=== PATIENT | male | born 1985 | race African-American/Black ===

== ENCOUNTER 2024-12-25 13:12 | Inpatient (IN) | payer MEDICAID, SELFPAY ==
[2024-12-25] VITALS (63 sets, daily range): BP systolic 128–190; BP diastolic 78–112; PULSE 57–105; RESP 10–97; TEMP 36.8–37.1; O2SAT 90–100; BMI 27.8
--- NOTE | 2024-12-25 13:20 | XR_ITS ---
Examination: AP chest single view TECHNIQUE: AP portable upright chest single view Date and time: December 25, 2024, 1350 hours, comparison March 31, 2023 INDICATIONS: Stroke alert today FINDINGS: Normal heart size No aspiration pneumonia. The osseous structures are intact IMPRESSION: No aspiration pneumonia
--- NOTE | 2024-12-25 13:20 | XR_ITS ---
Examination: CTA carotids with intravenous contrast CTA brain, head with intravenous contrast. 2-D sagittal, coronal reconstructions. 3-D reconstructions. Exam date and time: December 25, 2024, 1330 hours INDICATIONS: Stroke alert, onset right-sided body weakness slurred speech dizziness beginning one hour ago CTDI: vol (mGy) 25.2 DLP: (mGycm) 509 Technique: Multiple CTA axial brain, head carotid images post intravenous contrast injection 75 cc, [id number]. 2-D sagittal, coronal reconstructions. 3-D reconstructions, 3-D post processing including vascular maximum intensity projection images. Low dose protocols were performed. One or more of the following dose reduction techniques were used; automated exposure control, adjustment of the mA and/or KV according to patient size, use of iterative reconstruction technique. Findings: No common carotid carotid bifurcation or internal carotid artery stenoses Dominant right vertebral artery in the neck with no critical stenoses No cerebral large vessel arterial occlusions or thrombus IMPRESSION: No significant neck arterial stenoses No cerebral large vessel arterial occlusions or thrombus
--- NOTE | 2024-12-25 13:20 | EKG_ITS ---
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
--- NOTE | 2024-12-25 13:20 | XR_ITS ---
Examination: CT brain head without contrast. 2-D sagittal coronal reconstructions Date and time of exam:December 25, 2024, 1326 hours INDICATIONS: Stroke alert, onset focal neurologic deficit Technique: Multiple CT axial sections of the brain have been obtained, 5 mm slice thickness. Contrast has not been administered. 2-D sagittal, coronal reconstructions have been obtained Low dose protocols were performed. One or more of the following dose reduction techniques were used; automated exposure control, adjustment of the mA and/or KV according to patient size, use of iterative reconstruction technique. Findings: No significant ventricular enlargement. Intra-axial or extra-axial hemorrhage density is not seen. No mass effect or midline shift Basal cisterns are not remarkable. Fourth ventricle is midline. Cranial vault intact. Impression: Negative for acute hemorrhage, mass effect or midline shift
--- NOTE | 2024-12-25 13:21 | PD.EDWEAK ---
ED Weakness RME/HPI General Chief complaint: Weakness Stated complaint: possible stroke, slurring words, dizziness Time Seen by Provider: 12/25/24 13:19 Arrival date/time: 12/25/24 13:12 RME / HPI RME / HPI Narrative: 39-year-old male patient with no significant past medical history except for chronic alcoholism, came in for evaluation regarding sudden onset of slurring of speech, and facial asymmetry, severity moderate. Patient denies any upper or lower extremity weakness patient is ambulatory. Last well-known time was 1 hour ago. Patient admits of drinking 2 beers today. No headache no dizziness. Patient is not taking any blood thinner. Related Data Previous Rx's ?Medication ?Instructions ?Recorded Hydrocodone/Acetaminophen * (NORCO 1 - 2 tab PO Q4H PRN PAIN #20 tabs 07/11/16 5/325 *) ibuprofen 600 mg tablet 600 mg PO TID #30 tabs 07/05/17 cefuroxime axetil 250 mg tablet 500 mg (2 x 250 mg) PO BID #28 tabs 04/03/23 magnesium hydroxide 400 mg/5 mL 5 ml PO QDAY PRN constipation #355 04/03/23 oral suspension (Milk of Magnesia) mL oseltamivir 75 mg capsule 75 mg PO BID #10 caps 04/03/23 Allergies Allergy/AdvReac Type Severity Reaction Status Date / Time dill oil Allergy Unknown Swelling Verified 12/25/24 13:15 of Lip/Tongue/Throat Milk Containing Products Allergy Unknown Swelling Verified 12/25/24 13:15 (Dairy) of Lip/Tongue/Throat Review of Systems Review of Systems Narrative Review of Systems: Review of system reviewed and within normal limits except mentioned in HPI ED Exam Narrative Physical exam: VITAL SIGNS: Reviewed. GENERAL APPEARANCE: Alert and interactive, follows commands, no acute distress, positive slurred speech HEAD AND FACE: Non-traumatic. Facial asymmetry noted, facial droop noted on the left ENT: PERRL, pink conjunctivitis, eyelid no trauma, Mucous membrane moist. NECK: Supple, nontender, no nuchal rigidity. CHEST: No tenderness, no crepitus, no paradoxical movement, no retractions. LUNGS: Clear, well ventilated, symmetric, no rales, no wheezing, no ronchi, no stridor, good breath sounds bilaterally. HEART: Regular rate, regular rhythm, no murmur, no gallops. ABDOMEN: Soft, positive bowel sounds, nondistended, no guarding, nontender, no rebound, no masses, RECTAL: Deferred. GENITAL: Deferred. NEUROLOGICAL: Gross motor function intact sensory function intact, Appropriate for age. MUSCULOSKELETAL: low back nontender, full range of motion. EXTREMITIES: Nontender, full range of motion. Bilateral lower extremity swelling, chronic SKIN: Color pink, dry, no rash, no lacerations, no abrasions, no contusions. LYMPHATICS: Deferred. Course Quality Measures none Orders Category Date Time Status Admit to Inpatient Status Routine Admission 12/25/24 14:56 Active Patient Condition Routine Admission 12/25/24 14:56 Ordered Bedside Blood Glucose NOW Care 12/25/24 13:20 Active COVID-19 Screening Questionnaire NOW Care 12/25/24 14:44 Active Predatory Animal Hunter NOW Care 12/25/24 13:20 Active Predatory Animal Hunter NOW Care 12/25/24 14:54 Completed Predatory Animal Hunter now Care 12/25/24 14:56 Completed Continuous Pulse Oximetry NOW Care 12/25/24 13:20 Completed Continuous Pulse Oximetry QSHIFT Care 12/25/24 14:56 Completed Decision to Admit X1 Care 12/25/24 14:44 Completed EKG (ED ONLY) *Do not use* NOW Care 12/25/24 13:20 Completed HOB > 30 Degrees All Times QSHIFT Care 12/25/24 15:48 Active In and Out Catheter NEEDED Care 12/25/24 13:20 Active Insert IV NOW Care 12/25/24 13:20 Active MRI Screening NOW Care 12/25/24 14:54 Active NIH Stroke Scale Q4HX8,QSHIFT Care 12/25/24 13:53 Active NIH Stroke Scale now Care 12/25/24 13:20 Active NPO NOW Care 12/25/24 13:20 Active NPO NOW Care 12/25/24 14:56 Active Neuro Check Q15M Care 12/25/24 13:53 Active Notify provider NEEDED Care 12/25/24 14:56 Active Nurse Swallow Screen X1 Care 12/25/24 14:54 Completed Nurse Swallow Screen x1 Care 12/25/24 13:20 Active Nurse Swallow Screen x1 Care 12/25/24 14:56 Active Vital Signs Q5M Care 12/25/24 13:43 Active Vital Signs, Non-Routine Q2H Care 12/25/24 15:15 Ordered Vital Signs, Non-Routine Q2H Care 12/25/24 17:15 Ordered Vital Signs, Non-Routine Q2H Care 12/25/24 19:15 Ordered Vital Signs, Non-Routine Q2H Care 12/25/24 21:15 Ordered Vital Signs, Non-Routine Q2H Care 12/25/24 23:15 Ordered Consult to Neurology / Tele-Neurology Routine Cons 12/25/24 13:20 Active Consult to Neurology / Tele-Neurology Routine Cons 12/26/24 00:00 Active Referral Physical Therapy Routine Cons 12/25/24 15:10 Active Referral Speech Therapy Routine Cons 12/25/24 15:10 Active Diet NPO (NOW) Diet 12/25/24 14:56 Active CA echo doppler complete Routine Exams 12/25/24 15:[address] angio stroke protocol Stat Exams 12/25/24 13:[address] stroke protocol Stat Exams 12/25/24 13:20 Completed EKG (ED Only) Stat Exams 12/25/24 13:20 Draft MR stroke protocol brain wo con with MRA head and neck Exams 12/25/24 14:54 Ordered Stat US liver Routine Exams 12/25/24 15:16 Taken US venous doppler LE BI Routine Exams 12/25/24 15:14 Taken XR chest 1V portable Stat Exams 12/25/24 13:20 Completed Alcohol, Blood Medical Stat Lab 12/25/24 13:31 Completed CBC AM DRAW Lab 12/26/24 05:00 Ordered CBC Stat Lab 12/25/24 13:31 Completed CBC Stat Lab 12/25/24 15:20 Completed Comprehensive Metabolic Panel Stat Lab 12/25/24 13:31 Completed Drug Screen,Urine Stat Lab 12/25/24 15:17 Completed Glycohemoglobin w (eAG) AM DRAW Lab 12/26/24 05:00 Ordered HCG Titer if Positive Stat Lab 12/25/24 13:31 Completed Magnesium AM DRAW Lab 12/26/24 05:00 Ordered Magnesium Stat Lab 12/25/24 13:31 Completed Magnesium Stat Lab 12/25/24 15:20 Completed Partial Thromboplastin Time AM DRAW Lab 12/26/24 05:00 Ordered Partial Thromboplastin Time Stat Lab 12/25/24 13:31 Completed Prothrombin Time with INR AM DRAW Lab 12/26/24 05:00 Ordered Prothrombin Time with INR Stat Lab 12/25/24 13:31 Completed TSH [Thyroid Stimulating Hormone] Routine Lab 12/25/24 15:20 Completed Troponin I Stat Lab 12/25/24 13:31 Completed Urinalysis, C/S if Indicated Stat Lab 12/25/24 15:15 Completed Acetaminophen Tab [Tylenol Tab] Med 12/25/24 16:17 Active 650 mg PO Q6HR PRN Diazepam Inj [Valium Inj] Med 12/25/24 16:02 Active 10 mg IVP Q2HR PRN Diazepam Inj [Valium Inj] Med 12/25/24 16:02 Active 2.5 mg IVP Q2HR PRN Diazepam Inj [Valium Inj] Med 12/25/24 16:02 Active 5 mg IVP Q2HR PRN LORazepam [Ativan] Med 12/25/24 16:02 Active 0.5 mg PO Q4HR PRN Labetalol IV [Trandate IV] Med 12/25/24 13:38 Active 10 mg IVP PRNMRX1 PRN Labetalol IV [Trandate IV] Med 12/25/24 13:38 Active 10 mg IVP PRNMRX1 PRN Labetalol IV [Trandate IV] Med 12/25/24 13:20 Active 10 mg IVP Q15M PRN Nicardipine/Ns 20Mg Ivpb [Cardene Ivpb] Med 12/25/24 13:38 Active 20 mg in 200 ml IV 5 mg/hr Ondansetron Inj [Zofran Inj] Med 12/25/24 13:20 Active 4 mg IVP Q4HR PRN Tenecteplase Inj [TNKase Inj] Med 12/25/24 13:38 Discontinued 20.8 mg IV X1 ONE Tenecteplase Inj [TNKase Inj] Med 12/25/24 13:39 Discontinued 50 mg .ROUTE .STK-MED ONE Code Status Routine Oth 12/25/24 14:56 Ordered EKG (RT) Stat RT 12/25/24 14:54 Stop Req Oxygen Delivery NOW RT 12/25/24 13:20 Active Oxygen Delivery NOW RT 12/25/24 14:56 Hold Referral Custodial Operations Manager NOW 12/25/24 14:56 Active Vital Signs Vital signs: Vital Signs Pulse Rate 105 H 12/25/24 13:20 Weakness MDM Narrative MDM Narrative:: 39-year-old male patient with no significant past medical history except for chronic alcoholism, came in for evaluation regarding sudden onset of slurring of speech, and facial asymmetry, severity moderate. Patient denies any upper or lower extremity weakness patient is ambulatory. Last well-known time was 1 hour ago. Patient admits of drinking 2 beers today. No headache no dizziness. Patient is not taking any blood thinner. Stroke alert was initiated right away I spoke with teleneurologist, who gave patient TNKase. CT scan of the head CT angio head and neck also came back unremarkable. Rest of labs came back normal. Except for AST of 161 ALT of 95 alkaline phos of 232. Positive for marijuana and atrial alcohol 97 Plan of care discussed with the patient and agrees to be admitted. Spoke with Dr. Tobias, hospitalist, who admitted the patient. Patient data External records reviewed:: None Clinical information provided by:: patient Social determinants that could affect healthcare access:: none Patient has the following chronic illnesses:: Chronic alcoholism How is presenting disease/condition affected by chronic disease/condition?: no chronic disease Evaluation data The following diagnostics were reviewed and interpreted by me:: lab results, radiology exam(s) and EKG tracing(s) Lab and/or radiology exams considered but not ordered:: None Interpretation Summary: EKG showed normal sinus rhythm, ventricular rate of 77 bpm, no ST segment elevation depression noted. Medications / Prescriptions Medications or Prescriptions considered but not ordered:: None Medication administrations:: Medication Administration History Acetaminophen (Acetaminophen 325 Mg Tablet) 650 mg PO Q6HR PRN PRN Reason: Fever >101 and pain Stop: 01/24/25 16:16 Diazepam (Diazepam Inj 5 Mg/Ml Vial 2 Ml) 2.5 mg IVP Q2HR PRN PRN Reason: CIWA SCORE 8-13 Stop: 12/30/24 16:01 Diazepam (Diazepam Inj 5 Mg/Ml Vial 2 Ml) 5 mg IVP Q2HR PRN PRN Reason: CIWA SCORE 14-19 Stop: 12/30/24 16:01 Diazepam (Diazepam Inj 5 Mg/Ml Vial 2 Ml) 10 mg IVP Q2HR PRN PRN Reason: CIWA SCORE 20-25 Stop: 12/30/24 16:01 Nicardipine/Sodium Chloride (Cardene Ivpb) 20 mg in 200 mls @ 50 mls/hr IV .Q4H PRN; Protocol PRN Reason: Per Nicardipine Stroke Protocol Stop: 01/24/25 13:37 Labetalol HCl (Labetalol Inj 5 Mg/Ml Vial 20 Ml) 10 mg IVP Q15M PRN PRN Reason: HYPER Last Admin: 12/25/24 14:29 Dose: 10 mg Documented By: BY Labetalol HCl (Labetalol Inj 5 Mg/Ml Vial 20 Ml) 10 mg IVP PRNMRX1 PRN PRN Reason: SBP > 185 mmHg and/or DBP > 110 Labetalol HCl (Labetalol Inj 5 Mg/Ml Vial 20 Ml) 10 mg IVP PRNMRX1 PRN PRN Reason: SBP > 180 mmHg or DBP > 105 Lorazepam (Lorazepam 0.5 Mg Tablet) 0.5 mg PO Q4HR PRN PRN Reason: CIWA Score 2-6 Stop: 12/30/24 16:01 Ondansetron HCl (Ondansetron Inj 2 Mg/Ml Inj 2 Ml) 4 mg IVP Q4HR PRN PRN Reason: NAUSEA OR VOMITING Stop: 01/24/25 13:19 Discontinued Medications Tenecteplase (Tenecteplase Inj 50 Mg Vial) 20.8 mg 0.25 mg/kg (20.8 mg) IV X1 ONE Stop: 12/25/24 13:39 Last Admin: 12/25/24 13:44 Dose: 20.8 mg Documented By: MIHIR Co-signed By: WALKER Tenecteplase (Tenecteplase Inj 50 Mg Vial) Confirm Administered Dose 50 mg .ROUTE .STK-MED ONE Stop: 12/25/24 13:40 Last Admin: 12/25/24 14:39 Dose: Not Given Documented By: MIHIR Non-Admin Reason: Duplicate Medication on eMAR See MDM Consultations Consultation(s) initiated? (list below): No Diagnosis Weakness Differential Diagnosis: dehydration and other (Alcohol intoxication, CVA) Most likely diagnosis given after review of the tests above:: CVA Admission Indicated Admission indicated?: indicated Admission Request Was there a request for admission?: Yes Admission Attestation Admission request attestation: Discussed case with [Dr. Torres] from Hospitalist service regarding admission. Discussed patients ED course, exam findings, labs, and radiology results. The Hospitalist [agrees] to accept the patient for admission. Disposition Plan Disposition Plan: Admit Discharge Plan Plan Patient Disposition: Admit Acute Care w/in Hospital Prescriptions/Referrals Prescriptions/Med Rec: No Action Hydrocodone/Acetaminophen * (NORCO 5/325 *) 1 TAB tablet 1 - 2 tab PO Q4H PRN (Reason: PAIN) Qty: 20 0RF Rx Instructions: FOR PAIN ibuprofen 600 mg tablet 600 mg PO TID Qty: 30 0RF cefuroxime axetil 250 mg Tablet 500 mg PO BID Qty: 28 0RF oseltamivir 75 mg Capsule 75 mg PO BID Qty: 10 0RF magnesium hydroxide [Milk of Magnesia] 400 mg/5 mL suspension 5 ml PO QDAY PRN (Reason: constipation) Qty: 355 0RF Referrals: No Primary/Family,Physician [Primary Care Provider] - In 1 week Problem List Clinical Impression: Acute CVA (cerebrovascular accident) Patient/Caregiver Discharge Instructions Print Language: Anguill[place] Stand Alone Forms: Leatha Award Info., Patient Portal Info Letter
[2024-12-25] MEDS: TENECTEPLASE INJ 50 MG VIAL 20.8 MG IV (13:44)
--- NOTE | 2024-12-25 13:50 | PD.TNEURO ---
Tele Neuro Consultation Consultation Date 12/25/24 Most Recent Vital Signs Last Vital Signs Temp 98.8 F 12/25/24 13:41 Pulse 91 12/25/24 13:41 Resp 20 12/25/24 13:41 BP 153/103 H 12/25/24 13:45 Pulse Ox 99 12/25/24 13:41 O2 Del Method Room Air 12/25/24 13:41 Consultation Narrative [facility] Patient Name:???EULOGIO JOHNSON Date of :???1985 Identification Number:??? Date of Service:???12/25/2024 13:20:23 Diagnosis:?I63.89 - Cerebrovascular accident (CVA) due to other mechanism ([facility]) Impression: ?39 year old male without known chronic medical problems presenting with acute right hemiparesis and dysarthria, suspected stroke. Our recommendations are outlined below. Recommendations: IV Tenecteplase recommended. I confirmed the following. (Patient name, , MRN, Blood Pressure, dose of Thrombolytic and waste, weight completed by stretcher/scale not stated weight, have ED staff inform ED MD of thrombolytic decision) Thrombolytic bolus given Without Complication. IV Tenecteplase Total Dose ? 20.8 mg (Dose Rounding Per Facility Protocol) Routine post Thrombolytic monitoring including neuro checks and blood pressure control during/after treatment Monitor blood pressure Check blood pressure and neuro assessment every 15 min for 2 h, then every 30 min for 6 h, and finally every hour for 16 h. Manage Blood Pressure per post Thrombolytic protocol. ? Follow designated hospital protocol for admission and post thrombolytic care ? CT brain 24 hours post Thrombolytic ? NPO until swallowing screen performed and passed ? No antiplatelet agents or anticoagulants (including heparin for DVT prophylaxis) in first 24 hours ? No Riley catheter, nasogastric tube, arterial catheter or central venous catheter for 24 hr, unless absolutely necessary ? Telemetry ? Bedside swallow evaluation ? HOB less than 30 degrees ? Euglycemia ? Avoid hyperthermia, PRN acetaminophen ? DVT prophylaxis ? Inpatient Neurology Consultation ? Stroke evaluation as per inpatient neurology recommendations Discussed with ED physician Advanced Imaging:Advanced imaging has been ordered. Results pending. Metrics: Last Known Well: 12/25/2024 11:30:00 Dispatch Time: 12/25/2024 13:20:23 Arrival Time: 12/25/2024 13:12:00 Initial Response Time: 12/25/2024 13:22:12Symptoms: right side weakness . Initial patient interaction: 12/25/2024 13:28:24 NIHSS Assessment Completed: 12/25/2024 13:31:03Patient is a candidate for Thrombolytic. Thrombolytic Medical Decision: 12/25/2024 13:32:53 Needle Time: 12/25/2024 13:44:29Weight Noted by Staff: [address] Head: CT head unremarkable for acute infarction or hemorrhage per Radiology: negative per radiology. CT images also reviewed remotely, no acute findings seen. Primary Provider Notified of Diagnostic Impression and Management Plan on: 12/25/2024 13:50:12 Thrombolytic Contraindications: Last Known Well > 4.5 hours:?No CT Head showing hemorrhage:?No Ischemic stroke within 3 months:?No Severe head trauma within 3 months:?No Intracranial/intraspinal surgery within 3 months:?No History of intracranial hemorrhage:?No Symptoms and signs consistent with an SAH:?No GI malignancy or GI bleed within 21 days:?No Coagulopathy: Platelets <100 000 /mm3, INR >1.7, aPTT>40 s, or PT >15 s:?Unknown at the time of medical decision making Treatment dose of LMWH within the previous 24 hrs:?No Use of NOACs in past 48 hours:?No Glycoprotein IIb/IIIa receptor inhibitors use:?No Symptoms consistent with infective endocarditis:?No Suspected aortic arch dissection:?No Intra-axial intracranial neoplasm:?No Thrombolytic Decision and Management Plan: Management with thrombolytic treatment was explained to the Patient as was risks and benefits and alternatives to the treatment. Patient agrees with the decision to proceed with thrombolytic treatment. . All questions were answered and the Patient expressed understanding of the treatment plan. History of Present Illness:Patient is a 39 year old Male. Patient was brought by private transportation with symptoms of right side weakness . The patient presents with sudden onset of right hemiparesis that began while at work. He was unable to use his right hand initially. He has associated significant slurred speech. His symptoms are currently persistent. He denies any chronic medical problems and takes no medications. ? Past Medical History: Other PMH:? Denies Medications: No Anticoagulant use? No Antiplatelet use Reviewed EMR for current medications Allergies:? Reviewed Social History: Smoking: Yes Alcohol Use: Yes Family History: There is no family history of premature cerebrovascular disease pertinent to this consultation ROS : 14 Points Review of Systems was performed and was negative except mentioned in HPI. Past Surgical History: There Is No Surgical History Contributory To Today?s Visit ? Examination: BP(152/99),?Pulse(92),?Blood Glucose(128) 1A: Level of Consciousness - Alert; keenly responsive?+ 0 1B: Ask Month and Age - Both Questions Right?+ 0 1C: Blink Eyes & Squeeze Hands - Performs Both Tasks?+ 0 2: Test Horizontal Extraocular Movements - Normal?+ 0 3: Test Visual Gonzales - No Visual Loss?+ 0 4: Test Facial Palsy (Use Grimace if Obtunded) - Partial paralysis (lower face)?+ 2 5A: Test Left Arm Motor Drift - No Drift for 10 Seconds?+ 0 5B: Test Right Arm Motor Drift - No Drift for 10 Seconds?+ 0 6A: Test Left Leg Motor Drift - No Drift for 5 Seconds?+ 0 6B: Test Right Leg Motor Drift - No Drift for 5 Seconds?+ 0 7: Test Limb Ataxia (FNF/Heel-No) - No Ataxia?+ 0 8: Test Sensation - Complete Loss: Cannot Sense Being Touched At All?+ 2 9: Test Language/Aphasia - Normal; No aphasia?+ 0 10: Test Dysarthria - Severe Dysarthria: Unintelligble Slurring or Out of Proportion to Aphasia?+ 2 11: Test Extinction/Inattention - No abnormality?+ 0 NIHSS Score:?6 Pre-Morbid Modified [place] Scale: 0 Points = No symptoms at all Spoke with :?Edu Argueta NP This consult was conducted in real time using interactive audio and video technology. Patient was informed of the technology being used for this visit and agreed to proceed. Patient located in hospital and provider located at home/office setting. Patient is being evaluated for possible acute neurologic impairment and high probability of imminent or life-threatening deterioration. I spent total of 35 minutes providing care to this patient, including time for face to face visit via telemedicine, review of medical records, imaging studies and discussion of findings with providers, the patient and/or family. Dr Liu Francois [facility] For Inpatient follow-up with [facility] physician please call [facility] at . As we are not an outpatient service for any post hospital discharge needs please contact the hospital for assistance. If you have any questions for the [facility] physicians or need to reconsult for clinical or diagnostic changes please contact us via [facility] at . Signature :Yolanda Francois
[2024-12-25 13:53] LABS: Basophils # (Auto) 0.0 Thou/mm3 (0.0-0.2); Basophils % (Auto) 1 % (0-2.5); Eosinophils # (Auto) 0.1 Thou/mm3 (0.0-0.5); Eosinophils % (Auto) 2 % (0-10); Hematocrit 44.4 % (41.0-53.0); Hemoglobin 15.0 g/dL (13.5-16.0); Immature Granulocytes Auto 0.02 Thou/mm3 (0.00-0.00); Lymphocytes # (Auto) 0.7 Thou/mm3 (1.0-4.8); Lymphocytes % (Auto) 20 % (10-50); Mean Corpuscular HGB Conc 33.8 g/dl (31.0-37.0); Mean Corpuscular Hemoglobin 31.2 pg (25.0-35.0); Mean Corpuscular Volume 92 fL (80-100); Monocytes # (Auto) 0.6 Thou/mm3 (0.0-0.8); Monocytes % (Auto) 16 % (0-12); Neutrophils # (Auto) 2.2 Thou/mm3 (1.8-7.7); Neutrophils % (Auto) 61 % (37-80); Nucleated Red Blood Cell # 0.00 Thou/mm3 (0.00-0.00); Nucleated Red Blood Cell % 0 /100 WBC (0); Platelet Count 232 Thou/mm3 (140-440); RDW Standard Deviation 45.7 fL (35.1-43.9); Red Blood Count 4.81 Miln/mm3 (4.50-5.90); White Blood Count 3.6 Thou/mm3 (3.8-10.6)
[2024-12-25 14:07] LABS: INR 1.0 (0.9-1.3); Partial Thromboplastin Time 29.6 Seconds (22.0-36.0); Prothrombin Time 10.9 Seconds (9.0-12.2)
[2024-12-25 14:08] LABS: HCG Titer if Positive Negative
[2024-12-25 14:11] LABS: Alanine Aminotransferase 95 U/L (10-49); Albumin, Serum 4.6 gm/dL (3.5-5.0); Albumin/Globulin Ratio 1.5 (1.2-2.2); Alkaline Phosphatase 232 U/L (46-116); Anion Gap 7 (7-16); Aspartate Amino Transferase 161 U/L (0-34); BUN/Creatinine Ratio 5 Ratio (12-20); Bilirubin,Total 1.0 mg/dL (0.3-1.2); Blood Urea Nitrogen < 5 mg/dL (9-23); Calcium 9.7 mg/dL (8.3-10.6); Calcium (Corrected) 9.7 mg/dL (8.5-10.1); Carbon Dioxide 23.8 mMol/L (20.0-31.0); Chloride 103 mMol/L (98-107); Creatinine (Component) 1.1 mg/dL (0.6-1.3); Estimated Creatinine Clearance 94.7 mL/min (>60); Globulin 3.0 gm/dL (2.3-3.5); Glucose 110 mg/dL (74-106); Magnesium 2.0 mg/dL (1.6-2.6); Osmolality,Calculated 266 (275-295); Potassium 4.0 mMol/L (3.4-5.1); Sodium 134 mMol/L (136-145); Total Protein 7.6 gm/dL (5.7-8.2); Troponin I < 0.020 ng/mL (0.0-0.045); eGFR > 60 See Note
[2024-12-25] MEDS: LABETALOL INJ 5 MG/ML VIAL 20 ML 10 MG IVP (14:29)
--- NOTE | 2024-12-25 14:54 | XR_ITS ---
Examinations: MRI Brain without intravenous contrast. Date and time of exam: December 25, 2024, 1804 hrs. Indications: Stroke alert today, onset focal neurologic deficit, slurred speech, dizziness, right upper extremity weakness, right facial droop Technique: Multiple axial and sagittal images of the brain have been obtained MRA brain carotid images without contrast obtained, including 3-D postprocessing, vascular maximum intensity projection images Findings: [place] is not enlarged. The optic chiasm and infundibular stalk are not remarkable. Prepontine and interpeduncular cisterns are not enlarged. No localized enlargement of the medulla or pete. Fourth ventricle and cerebellar tonsils normal in position. Subacute hemorrhage is not seen. Fourth ventricle is midline. Mass in the cerebellopontine angle region is not evident. 7th and 8th nerve complexes exhibits symmetry. Globes are symmetrical with no retro-orbital mass. Increased white matter signal evident, scattered punctate foci increased signal in the white matter, the largest in the left basal ganglia, 10 mm Diffusion-weighted images demonstrate 10 mm subtle focus restricted diffusion in the left basal ganglia without signal deficit on the ADC map Mass-effect upon the ventricular system is not identified. Impression: Focus of restricted diffusion, 10 mm in the left basal ganglia but without signal deficit on the ADC map FLAIR images demonstrate scattered foci increased signal in the white matter, demyelinating disease pattern Recommend consultation by neurology and correlation with clinical findings
--- NOTE | 2024-12-25 15:10 | ECHO_ITS ---
Transthoracic Echo Report Ht (in): 68 Wt (lb): 182 Exam Location: Echo Lab Status: Emergency Sign Manufacturer: Danielle Tao Indications: Procedure Performed: BP: 162 / 96 HR: 80 FINDINGS Left Ventricle Normal left ventricular size, wall thickness, systolic function with no obvious regional wall motion abnormalities. Normal left ventricular diastolic filling pattern for age. The ejection fraction is visually estimated at 55-60 %. Right Ventricle The right ventricle is normal in size and systolic function. Left Atrium The left atrium is normal by two-dimensional, color flow and Doppler imaging with no structural abnormalities, no thrombus formation present. Right Atrium The right atrium is normal by two-dimensional imaging, color flow and Doppler imaging with no structural abnormalities, no thrombus formation present. Atrial Septum The interatrial septum appears normal with no evidence of a shunt. Aorta The aorta is normal by two-dimensional, color flow and Doppler interrogation. Mitral Valve The mitral valve is normal by two-dimensional, color flow and Doppler interrogation. There is no significant mitral valve regurgitation, stenosis or prolapse. Aortic Valve The aortic valve is trileaflet and normal by two-dimensional, color flow and Doppler interrogation. There is no significant aortic valve regurgitation. Tricuspid Valve The tricuspid valve is normal by two-dimensional, color flow and Doppler interrogation. There is trace tricuspid valve regurgitation. Pulmonic Valve The pulmonic valve is not well visualized. There is no significant pulmonic valve regurgitation. Vessels The pulmonary artery appears normal. The inferior vena cava pulmonary and hepatic veins appear normal. Pericardium The pericardium is normal by two-dimensional imaging. There is no significant pericardial effusion. CONCLUSIONS Indication: CVA Negative bubble study. Normal left ventricular size and function. Estimated EF at 55-60%. Normal LV diastolic function. The RV is normal in size and systolic function. Trace TR Grady Arriaza (Electronically Signed) Final Date: 28 December 2024 11:19
--- NOTE | 2024-12-25 15:14 | XR_ITS ---
Examination: Venous duplex lower extremity sonogram, bilateral. Date and time of exam: December 25, T2 thousand 25, 1543 hrs. Indications: Bilateral leg swelling and edema 10 years Technique: Multiple sonographic images of the deep venous system have been obtained. B-mode/2-D grayscale imaging of vascular structures and Doppler spectral analysis (waveforms) and color performed Both legs are examined. Findings: Deep venous systems do not demonstrate abnormal echogenicity. All visualized deep veins exhibit compressibility. All visualized deep veins exhibit augmentation. Impression: Negative for deep vein thrombosis
--- NOTE | 2024-12-25 15:16 | XR_ITS ---
Examination: Abdomen sonogram, Limited Date and time of exam: December 25, 2024, 1525 hrs. Abdominal pain, elevated transaminase liver tests on laboratory examination today Technique: Real-time kennedy scale transabdominal sonographic images of the upper abdomen obtained. Findings: Normal gallbladder. Normal common bile duct 0.3 cm. Pancreatic head 3.8 cm Liver 18.9 cm fatty infiltration mildly irregular in contour Normal hepatopedal portal venous oh Patent IVC Impression: Normal gallbladder Prominent pancreatic head, clinical correlation advised Moderate hepatomegaly suspicious for primary hepatocellular disease
--- NOTE | 2024-12-25 15:16 | PD.HHHP ---
Documentation for date of: 12/25/24 HPI - Hospitalist History of Present Illness History of present illness: Patient is a 39-year-old male with past medical history of chronic alcoholism, chronic tobacco use, chronic venous insufficiency who presented to the ED after he noted right upper extremity and right facial weakness and numbness that began while he was working. Patient works as a cook at a local restaurant. This was about 12:40 PM. He alerted his colleagues who stated he noted his right facial droop and slurred speech and subsequently advised him to go home. Upon returning home, his [id number] sent to the ED due to concern for stroke. He denied any lower extremity weakness otherwise. Upon evaluation in the ED, stroke alert was called. CT head was done showing no acute intracranial findings. CTA head/neck also does not show any significant neck arterial stenosis and no cerebral large vessel arterial occlusions/ thrombus. Patient received TNK in the ED. Hospitalist service was called for further workup and medical management of acute CVA s/p thrombolytics. Patient reports that he has not seen a doctor in several years. He currently reports resolution of his right sided weakness. Per bedside nurse, right facial droop appears much improved. Patient continues to have slurred speech. PmHx: chronic venous insufficiency, chronic alcoholism and chronic tobacco use Fmhx: HTN and T2DM in mother and maternal grandparents SocHx: ~20pack year hx of tobacco use; drinks 12 pack of beer daily; smokes marjiuana daily, denies other recreational drug use Review of Systems Review of Systems Narrative Review of Systems: Denies any chest pain, fevers, chills, nausea, vomiting, shortness of breath, abdominal pain, b/l LE pain Past Medical History Past Medical History Comments PMH COMMENT: As listed above Meds Home Medications and Allergies Home Medications ?Medication ?Instructions ?Recorded ?Confirmed ?Type No Known Home Medications 12/25/24 12/25/24 History Allergies Allergy/AdvReac Type Severity Reaction Status Date / Time dill oil Allergy Unknown Swelling Verified 12/25/24 13:15 of Lip/Tongue/Throat Milk Containing Products Allergy Unknown Swelling Verified 12/25/24 13:15 (Dairy) of Lip/Tongue/Throat Exam Vital Signs Temp Pulse Resp BP Pulse Ox O2 Del Method 98.8 F 82 18 139/94 H 97 Room Air 12/25/24 13:41 12/25/24 15:08 12/25/24 15:08 12/25/24 15:08 12/25/24 15:08 12/25/24 15:08 Narrative Gen: No acute distress HEENT: NCAT, PERRLOU, Sclera anicteric, conjunctiva noninjected, oral mucosa moist without erythema Neck: Supple, full range of motion, no LAD CV: RRR, no murmurs, rubs or gallops Resp: mild rhonchi noted on expiration in b/l lung bases GI: abdomen soft, bowel sounds noted, no tenderness to palpation, no guarding or rebound tenderness, no organomegaly Skin: clean, dry, no rashes, lesions or ecchymosis Ext: 2+ b/l LE edema Right >left. dorsalis pedis pulses +2/4 intact b/l, well healed scars noted on distal medial right lloyd and distal left lloyd Neuro: Slurred speech, A&O x3, CN II- XII intact b/l except for CNVII due to right facial droop, MS 4+/5 in all four extremities, gross sensation intact, [id number] and fnpr-bd-[id number] well coordinated, no dysmetria noted Results - Hospitalist Labs Diagrams: 12/25/24 13:31 12/25/24 13:31 Labs: Short CBC 12/25/24 Range/Units 13:31 WBC 3.6 L (3.8-10.6) Thou/mm3 Hgb 15.0 (13.5-16.0) g/dL Hct 44.4 (41.0-53.0) % Plt Count 232 (140-440) Thou/mm3 [facility] 12/25/24 13:31 Sodium 134 L Potassium 4.0 Chloride 103 Carbon Dioxide 23.8 BUN < 5 L Creatinine 1.1 Glucose 110 H Calcium 9.7 Cardiac Enzymes 12/25/24 Range/Units 13:31 Troponin I < 0.020 (0.0-0.045) ng/mL Liver Function 12/25/24 Range/Units 13:31 Total Bilirubin 1.0 (0.3-1.2) mg/dL AST 161 H (0-34) U/L ALT 95 H (10-49) U/L Alkaline Phosphatase 232 H (46-116) U/L Albumin 4.6 (3.5-5.0) gm/dL Assessment & Plan -Hospitalist Patient Synopsis Patient is a 39-year-old male with past medical history of chronic alcoholism, chronic tobacco use, chronic venous insufficiency who presented to the ED after he noted right upper extremity and right facial weakness and numbness that began while he was working. Patient works as a cook at a local restaurant. This was about 12:40 PM. He alerted his colleagues who stated he noted his right facial droop and slurred speech and subsequently advised him to go home. Upon returning home, his [id number]-lcn sent to the ED due to concern for stroke. He denied any lower extremity weakness otherwise. Upon evaluation in the ED, stroke alert was called. CT head was done showing no acute intracranial findings. CTA head/neck also does not show any significant neck arterial stenosis and no cerebral large vessel arterial occlusions/ thrombus. Patient received TNK in the ED. Hospitalist service was called for further workup and medical management of acute CVA s/p thrombolytics. Patient reports that he has not seen a doctor in several years. Acute CVA CT Head negative for acute hemorrhage, mass effect or midline shift CTA head/neck does not show any significant neck arterial stenosis and no cerebral large vessel arterial occlusions/ thrombus - admit to ICU for further observation as patient received TNK - goal BP <185/105, labetalol and nicardipine PRN ordered - neurochecks q15min in first 2hr, q30min for first 6h and q1h until 24h from start of thrombolysis (13:38) - lipid panel, TSH and A1c pending - MRI stroke protocol and echocardiogram ordered - PT/ST ordered - NPO at this time until patient passes nurse swallow/ ST screen - holding antiplatelet for first 24h due to TNK administration - Repeat head CT in 24h Chronic alcohol abuse - patient reports drinking 12 pack of beer daily for nearly 2 decades, denies hx of withdrawals - Monitor for withdrawals under CIWA protocol - manager social services to provide substance rehab info Transaminitis - likely 2/2 above - pending US of liver Chronic venous insufficiency B/l LE edema - Venous doppler of b/l le ordered to r/o DVT - f/u echocardiogram Chronic tobacco use - nicotine patch ordered - counselled on smoking cessation Code status : Full code dispo: ICU Diet: NPO, pending nurse swallow screen DVT ppx: will place SCDs if US b/l LE is negative for DVT Quality Measures Quality Measures VTE prophylaxis (scd)
[2024-12-25 15:21] LABS: Alcohol, Blood Medical 97.0 mg/dL (0-10.0)
[2024-12-25 15:28] LABS: Collection Type, Urine Clean Catch; Squamous Epithelial Cell,Urine 0 /hpf (0-5)
[2024-12-25 15:28] LABS: Basophils # (Auto) 0.0 Thou/mm3 (0.0-0.2); Basophils % (Auto) 1 % (0-2.5); Eosinophils # (Auto) 0.0 Thou/mm3 (0.0-0.5); Eosinophils % (Auto) 1 % (0-10); Hematocrit 42.5 % (41.0-53.0); Hemoglobin 14.4 g/dL (13.5-16.0); Immature Granulocytes Auto 0.01 Thou/mm3 (0.00-0.00); Lymphocytes # (Auto) 0.5 Thou/mm3 (1.0-4.8); Lymphocytes % (Auto) 16 % (10-50); Mean Corpuscular HGB Conc 33.9 g/dl (31.0-37.0); Mean Corpuscular Hemoglobin 31.2 pg (25.0-35.0); Mean Corpuscular Volume 92 fL (80-100); Monocytes # (Auto) 0.4 Thou/mm3 (0.0-0.8); Monocytes % (Auto) 14 % (0-12); Neutrophils # (Auto) 2.1 Thou/mm3 (1.8-7.7); Neutrophils % (Auto) 68 % (37-80); Nucleated Red Blood Cell # 0.00 Thou/mm3 (0.00-0.00); Nucleated Red Blood Cell % 0 /100 WBC (0); Platelet Count 206 Thou/mm3 (140-440); RDW Standard Deviation 45.2 fL (35.1-43.9); Red Blood Count 4.62 Miln/mm3 (4.50-5.90); White Blood Count 3.1 Thou/mm3 (3.8-10.6)
[2024-12-25 15:32] LABS: Bilirubin,Urine Negative (Negative); Blood,Urine Negative (Negative); Clarity,Urine Clear (Clear/Hazy); Color,Urine Lt-Yellow (Lt Yel-Yel); Culture Indicated,Urine Not Indicated; Glucose, Urine Negative (Negative); Ketones,Urine Negative (Negative); Leukocyte Esterase,Urine Negative (Negative); Nitrite,Urine Negative (Negative); PH,Urine 6.0 (5.0-7.0); Protein,Urine Negative (Neg - Trace); RBC,Urine 2 /hpf (0-3); Specific Gravity,Urine 1.033 (1.001-1.035); Urobilinogen,Urine Negative mg/dL (0.0-1.0); WBC,Urine < 1 /hpf (0-5)
[2024-12-25 15:58] LABS: Magnesium 2.1 mg/dL (1.6-2.6); Thyroid Stimulating Hormone 0.72 uIU/mL (0.55-4.78)
[2024-12-25 16:03] LABS: Amphetamine/Methamp Scrn,U Negative (Negative); Barbiturate Screen,Urine Negative (Negative); Benzodiazepines Screen,Urine Negative (Negative); Benzoylecgonine Screen, Ur Negative (Negative); Fentanyl Screen,Urine Negative (Negative); Opiate Screen,Urine Negative (Negative); THC Screen,Urine Positive (Negative)
--- NOTE | 2024-12-25 18:22 | PC.NURSE ---
PATIENT CONTINUES TO BE AT MRI
[2024-12-25] MEDS: NICOTINE PATCH 21 MG/24 HR PATCH.TD24 TOP (19:54)
[2024-12-26] VITALS (46 sets, daily range): BP systolic 125–173; BP diastolic 75–117; PULSE 53–94; RESP 10–97; TEMP 36.4–37.3; O2SAT 88–100; BMI 27.8; BMI 15.0
[2024-12-26 06:20] LABS: Basophils # (Auto) 0.0 Thou/mm3 (0.0-0.2); Basophils % (Auto) 1 % (0-2.5); Eosinophils # (Auto) 0.2 Thou/mm3 (0.0-0.5); Eosinophils % (Auto) 5 % (0-10); Hematocrit 42.8 % (41.0-53.0); Hemoglobin 14.6 g/dL (13.5-16.0); Immature Granulocytes Auto 0.01 Thou/mm3 (0.00-0.00); Lymphocytes # (Auto) 0.6 Thou/mm3 (1.0-4.8); Lymphocytes % (Auto) 16 % (10-50); Mean Corpuscular HGB Conc 34.1 g/dl (31.0-37.0); Mean Corpuscular Hemoglobin 32.3 pg (25.0-35.0); Mean Corpuscular Volume 95 fL (80-100); Monocytes # (Auto) 0.7 Thou/mm3 (0.0-0.8); Monocytes % (Auto) 19 % (0-12); Neutrophils # (Auto) 2.2 Thou/mm3 (1.8-7.7); Neutrophils % (Auto) 60 % (37-80); Nucleated Red Blood Cell # 0.00 Thou/mm3 (0.00-0.00); Nucleated Red Blood Cell % 0 /100 WBC (0); Platelet Count 191 Thou/mm3 (140-440); RDW Standard Deviation 47.1 fL (35.1-43.9); Red Blood Count 4.52 Miln/mm3 (4.50-5.90); White Blood Count 3.7 Thou/mm3 (3.8-10.6)
[2024-12-26 06:35] LABS: INR 1.0 (0.9-1.3); Partial Thromboplastin Time 28.8 Seconds (22.0-36.0); Prothrombin Time 10.9 Seconds (9.0-12.2)
[2024-12-26 06:40] LABS: Magnesium 2.1 mg/dL (1.6-2.6)
[2024-12-26 06:44] LABS: Glucose Estimated Average 114 mg/dL (80-131); Hemoglobin A1C 5.6 % Hgb (4.8-6.0)
[2024-12-26 07:36] LABS: Albumin, Serum 4.3 gm/dL (3.5-5.0); Anion Gap 6 (7-16); BUN/Creatinine Ratio 7 Ratio (12-20); Blood Urea Nitrogen 7 mg/dL (9-23); Calcium 9.4 mg/dL (8.3-10.6); Calcium (Corrected) 9.4 mg/dL (8.5-10.1); Carbon Dioxide 24.6 mMol/L (20.0-31.0); Cardiac Risk Estimate 3.2 RATIO (4.0-6.7); Chloride 105 mMol/L (98-107); Cholesterol 240 mg/dL (132-200); Creatinine (Component) 1.0 mg/dL (0.6-1.3); Estimated Creatinine Clearance 104.3 mL/min (>60); Glucose 89 mg/dL (74-106); HDL Cholesterol 75 mg/dL (40-60); LDL Cholesterol,Calculated 148 mg/dL (0-130); Osmolality,Calculated 268 (275-295); Phosphorous 3.7 mg/dL (2.4-5.1); Potassium 4.1 mMol/L (3.4-5.1); Sodium 136 mMol/L (136-145); Triglycerides 87 mg/dL (30-150); eGFR > 60 See Note
--- NOTE | 2024-12-26 08:36 | PCS.ST ---
Swallow Evaluation completed. See report for details. Dysphagia 2 diet. Speech to follow.
--- NOTE | 2024-12-26 10:42 | PC.SS ---
Addendum entered by SHANIA Yin 12/27/24 15:01: Rounding note: pending echo, 1 more day. Addendum entered by SHANIA Yin 12/26/24 10:49: SS update: Patient to be downgraded to Tele today. Original Note: Patient is a 39 year old male presenting to the hospital for CVA. CADDIE met with patient and patient life partner at bedside. Patient allowed for and daughter to remain in the room. CADDIE explained role, reason for visit. Patient confirmed demographic information and stated that his phone number is [phone]. Patient stated that he lives with Giuliana, and in case he is unable to make medical decisions today he would like her to make them, Giuliana?s contact information is [phone]. Patient stated that he does not use any DME, is not on dialysis, is employed [employer], would like to return home once medically clear, and does not have a PCP. Patient stated he has not seen doctor in over a year. Patient?s pharmacy of choice is [facility]. PCP: [facility], does not have primary doctor Decision maker: Giuliana Jensen PH: [phone] D/c: Home
--- NOTE | 2024-12-26 13:30 | XR_ITS ---
Examination: CT brain head without contrast. 2-D sagittal coronal reconstructions Date and time of exam:December 26, 2024, 1347 hrs. Indications: Stroke alert, post anticoagulant therapy, comparison 12/25/2024 CTDI: vol (mGy):48.4 DLP: (mGycm):904 Technique: Multiple CT axial sections of the brain have been obtained, 5 mm slice thickness. Contrast has not been administered. 2-D sagittal, coronal reconstructions have been obtained Low dose protocols were performed. One or more of the following dose reduction techniques were used; automated exposure control, adjustment of the mA and/or KV according to patient size, use of iterative reconstruction technique. Findings: No significant ventricular enlargement. Intra-axial or extra-axial hemorrhage density is not seen. No mass effect or midline shift Basal cisterns are not remarkable. Fourth ventricle is midline. Cranial vault intact. Impression: No interval acute hemorrhage, mass effect or midline shift
--- NOTE | 2024-12-26 13:57 | ESPR_ITS ---
Documentation for date of: 12/26/24 Subjective Subjective Interval history: Patient is a 39-year-old male with past medical history of chronic alcoholism, chronic tobacco use, chronic venous insufficiency who presented to the ED after he noted right upper extremity and right facial weakness and numbness that began while he was working. Patient works as a cook at a local restaurant. This was about 12:40 PM. He alerted his colleagues who stated he noted his right facial droop and slurred speech and subsequently advised him to go home. Upon returning home, his [id number] sent to the ED due to concern for stroke. He denied any lower extremity weakness otherwise. Upon evaluation in the ED, stroke alert was called. CT head was done showing no acute intracranial findings. CTA head/neck also does not show any significant neck arterial stenosis and no cerebral large vessel arterial occlusions/ thrombus. Patient received TNK in the ED. Hospitalist service was called for further workup and medical management of acute CVA s/p thrombolytics. Patient reports that he has not seen a doctor in several years. He currently reports resolution of his right sided weakness. Per bedside nurse, right facial droop appears much improved. Patient continues to have slurred speech. PmHx: chronic venous insufficiency, chronic alcoholism and chronic tobacco use Fmhx: HTN and T2DM in mother and maternal grandparents SocHx: ~20pack year hx of tobacco use; drinks 12 pack of beer daily; smokes marjiuana daily, denies other recreational drug use 12/26/2024: Overnight patient had no events. Input 0, output 300 cc. This morning patient endorses some worsening of his right arm weakness, but improvement of his dysarthria. Patient was seen by PT and speech therapy today. Cholesterol 240, LDL 148, HDL 75, TSH 0.72, A1c 5.6%. NIH 3. Repeat CT brain today was negative for any signs of hemorrhage. Started on aspirin and atorvastatin 80 [facility] p[facility] Patient clinically stable for downgrade to the floor. Exam Vital Signs Temp Pulse Resp BP Pulse Ox O2 Del Method 98.1 F 59 L 18 161/96 H 97 Room Air 12/26/24 12:00 12/26/24 13:00 12/26/24 13:00 12/26/24 13:00 12/26/24 13:12/26/24 13:00 Narrative Exam Constitutional Alert, oriented x 3 and comfortable. Young male, appears much older than his age. HEENT Vision grossly intact. Patent nares. Trachea midline Respiratory Chest normal on inspection and clear auscultation bilaterally Cardiovascular S1 and S2 audible, RRR. No murmurs carotid bruit. No gross JVD. Abdominal Soft and non tender to palpation in all quadrants. BS + Genitourinary No bladder tenderness, no flank pain. Normal to palpation Musculoskeletal Extremities tone within normal limits. No LE edema. Skin Warm, dry and intact. No apparent lesions. Psychiatric Patient has good affect, is cooperative Neurological CN II - XII grossly intact. Extremity motor and sensation grossly intact. 1A: Level of Consciousness - Alert + 0 1B: Ask Month and Age - Both questions correctly +0 1C: Blink Eyes & Squeeze Hands - Performs Both Tasks + 0 2: Test Horizontal Extraocular Movements - Normal + 0 3: Test Visual [place] - Normal +0 4: Test Facial Palsy (Use Grimace if Obtunded) - Minor paralysis (flat nasolabial fold, smile asymmetry) + 1 5A: Test Left Arm Motor Drift - No Drift for 10 Seconds + 0 5B: Test Right Arm Motor Drift - No Drift for 10 Seconds + 0 6A: Test Left Leg Motor Drift - No Drift for 5 Seconds + 0 6B: Test Right Leg Motor Drift - No Drift for 5 Seconds + 0 7: Test Limb Ataxia (FNF/Heel-No) - No Ataxia + 0 8: Test Sensation - Normal; No sensory loss + 0 9: Test Language/Aphasia - Mild +1 10: Test Dysarthria - Mild +1 11: Test Extinction/Inattention - No abnormality + 0 NIHSS Score: 3 Objective Labs 12/27/24 04:38 12/27/24 04:38 Labs: Laboratory Results - last 24 hr 12/25/24 12/25/24 12/25/24 13:31 15:15 15:17 WBC 3.6 L RBC 4.81 Hgb 15.0 Hct 44.4 MCV 92 MCH 31.2 MCHC 33.8 RDW Std Deviation 45.7 H Plt Count 232 Neut % (Auto) 61 Lymph % (Auto) 20 [place] % (Auto) 16 H Eos % (Auto) 2 Baso % (Auto) 1 Neut # (Auto) 2.2 Lymph # (Auto) 0.7 L [place] # (Auto) 0.6 Eos # (Auto) 0.1 Baso # (Auto) 0.0 Immature Gran # (Auto) 0.02 H Absolute Nucleated RBC 0.00 Immature Gran % 1 H Nucleated RBC % 0 PT 10.9 INR 1.0 APTT 29.6 Sodium 134 L Potassium 4.0 Chloride 103 Carbon Dioxide 23.8 Anion Gap 7 BUN < 5 L Creatinine 1.1 Estim Creat Clear Calc 94.7 eGFR > 60 BUN/Creatinine Ratio 5 L Glucose [address] Glu mg/dL Hemoglobin A1c Calculated Osmolality 266 L Calcium 9.7 Corrected Calcium 9.7 Phosphorus Magnesium 2.0 Total Bilirubin 1.0 AST 161 H ALT 95 H Alkaline Phosphatase 232 H Troponin I < 0.020 Total Protein 7.6 Albumin 4.6 Globulin 3.0 Albumin/Globulin Ratio 1.5 Triglycerides Cholesterol LDL Cholesterol, Calc HDL Cholesterol Cholesterol/HDL Ratio TSH Ur Collection Type Clean Catch Urine Color Lt-Yellow Urine Clarity Clear Urine pH 6.0 Ur Specific [place] 1.033 Urine Protein Negative Urine Glucose (UA) Negative Urine Ketones Negative Urine Blood Negative Urine Nitrite Negative Urine Bilirubin Negative Urine Urobilinogen (Auto) Negative Ur Leukocyte Esterase Negative Urine RBC 2 Urine WBC < 1 Ur Squamous Epith Cells 0 Urine Bacteria None Ur Culture Indicated? Not Indicated Urine Opiates Screen Negative Urine Fentanyl Screen Negative Ur Barbiturates Screen Negative U Amphetamin/Meth Scrn Negative U Benzodiazepines Scrn Negative U Cocaine Metab Screen Negative U Marijuana (THC) Screen Positive A Ethyl Alcohol 97.0 H HCG (Qual) Negative 12/25/24 12/26/24 15:20 04:57 WBC 3.1 L 3.7 L RBC 4.62 4.52 Hgb 14.4 14.6 Hct 42.5 42.8 MCV 92 95 MCH 31.2 32.3 MCHC 33.9 34.1 RDW Std Deviation 45.2 H 47.1 H Plt Count 206 191 Neut % (Auto) 68 60 Lymph % (Auto) 16 16 [place] % (Auto) 14 H 19 H Eos % (Auto) 1 5 Baso % (Auto) 1 1 Neut # (Auto) 2.1 2.2 Lymph # (Auto) 0.5 L 0.6 L [place] # (Auto) 0.4 0.7 Eos # (Auto) 0.0 0.2 Baso # (Auto) 0.0 0.0 Immature Gran # (Auto) 0.01 H 0.01 H Absolute Nucleated RBC 0.00 0.00 Immature Gran % 0 0 Nucleated RBC % 0 0 PT 10.9 INR 1.0 APTT 28.8 Sodium 136 Potassium 4.1 Chloride 105 Carbon Dioxide 24.6 Anion Gap 6 L BUN 7 L Creatinine 1.0 Estim Creat Clear Calc 104.3 eGFR > 60 BUN/Creatinine Ratio 7 L Glucose [address] Glu mg/dL 114 Hemoglobin A1c 5.6 Calculated Osmolality 268 L Calcium 9.4 Corrected Calcium 9.4 Phosphorus 3.7 Magnesium 2.1 2.1 Total Bilirubin AST ALT Alkaline Phosphatase Troponin I Total Protein Albumin 4.3 Globulin Albumin/Globulin Ratio Triglycerides 87 Cholesterol 240 H LDL Cholesterol, Calc 148 H HDL Cholesterol 75 H Cholesterol/HDL Ratio 3.2 L TSH 0.72 Ur Collection Type Urine Color Urine Clarity Urine pH Ur Specific [place] Urine Protein Urine Glucose (UA) Urine Ketones Urine Blood Urine Nitrite Urine Bilirubin Urine Urobilinogen (Auto) Ur Leukocyte Esterase Urine RBC Urine WBC Ur Squamous Epith Cells Urine Bacteria Ur Culture Indicated? Urine Opiates Screen Urine Fentanyl Screen Ur Barbiturates Screen U Amphetamin/Meth Scrn U Benzodiazepines Scrn U Cocaine Metab Screen U Marijuana (THC) Screen Ethyl Alcohol HCG (Qual) Quality Measures Quality Measures VTE prophylaxis (scd) Assessment & Plan Assessment Current Active Medications: Generic Name Dose Route Start Last Admin Trade Name Freq PRN Reason Stop Dose Admin Acetaminophen 650 mg 12/25/24 16:17 Acetaminophen 325 Mg Tablet PO 01/24/25 16:16 Q6HR PRN Fever >101 and pain Aspirin 81 mg 12/26/24 21:00 Aspirin Ec 81 Mg Tabec PO 01/25/25 20:59 HS ANASTASIYA Atorvastatin Calcium 80 mg 12/26/24 21:00 Atorvastatin Calcium 20 Mg Tablet PO 01/25/25 20:59 HS ANASTASIYA Diazepam 2.5 mg 12/25/24 16:02 Diazepam Inj 5 Mg/Ml Vial 2 Ml IVP 12/30/24 16:01 Q2HR PRN CIWA SCORE 8-13 Diazepam 5 mg 12/25/24 16:02 Diazepam Inj 5 Mg/Ml Vial 2 Ml IVP 12/30/24 16:01 Q2HR PRN CIWA SCORE 14-19 Diazepam 10 mg 12/25/24 16:02 Diazepam Inj 5 Mg/Ml Vial 2 Ml IVP 12/30/24 16:01 Q2HR PRN CIWA SCORE 20-25 Nicardipine/Sodium Chloride 20 mg in 200 mls @ 50 mls/hr 12/25/24 13:38 Cardene Ivpb IV 01/24/25 13:37 .Q4H PRN Per Nicardipine Stroke Protocol Protocol 5 MG/HR Labetalol HCl 10 mg 12/25/24 13:20 12/25/24 14:29 Labetalol Inj 5 Mg/Ml Vial 20 Ml IVP 10 mg Q15M PRN Administration HYPER Lorazepam 0.5 mg 12/25/24 16:02 Lorazepam 0.5 Mg Tablet PO 12/30/24 16:01 Q4HR PRN CIWA Score 2-6 Ondansetron HCl 4 mg 12/25/24 13:20 Ondansetron Inj 2 Mg/Ml Inj 2 Ml IVP 01/24/25 13:19 Q4HR PRN NAUSEA OR VOMITING Plan Patient is a 39-year-old male with past medical history of chronic alcoholism, chronic tobacco use, chronic venous insufficiency who presented to the ED after he noted right upper extremity and right facial weakness and numbness that began while he was working. Patient works as a cook at a local restaurant. This was about 12:40 PM. He alerted his colleagues who stated he noted his right facial droop and slurred speech and subsequently advised him to go home. Upon returning home, his [id number] sent to the ED due to concern for stroke. He denied any lower extremity weakness otherwise. Upon evaluation in the ED, stroke alert was called. CT head was done showing no acute intracranial findings. CTA head/neck also does not show any significant neck arterial stenosis and no cerebral large vessel arterial occlusions/ thrombus. Patient received TNK in the ED. Hospitalist service was called for further workup and medical management of acute CVA s/p thrombolytics. Patient reports that he has not seen a doctor in several years. Overnight patient had no events. Input 0, output 300 cc. This morning patient endorses some worsening of his right arm weakness, but improvement of his dysarthria. Patient was seen by PT and speech therapy today. Cholesterol 240, LDL 148, HDL 75, TSH 0.72, A1c 5.6%. NIH 3. Repeat CT brain today was negative for any signs of hemorrhage. Started on aspirin and [facility] Patient clinically stable for downgrade to the floor. NEURO Acute CVA Patient is status post TNK on 12/25. No signs of bleeding. Right arm weakness improved and right facial droop as well. DDx: TIA, Hemiplegic migraine Dx: - CT Brain n.c : No interval acute hemorrhage, mass effect or midline shift - MRI and MRA Focus of restricted diffusion, 10 mm in the left basal ganglia but without FLAIR images demonstrate scattered foci increased signal in the white matter demyelinating disease pattern Rx: - Patient is started on stroke protocol - Neuro checks q 4H - Head of bed elevated to 30 degrees - Swallow eval and bedside swallow screen ordered - PT/OT referrals placed - Seizure precautions in place - Allow permissive HTN. Antihypertensives if BP >220/120, with a goal of reduction in BP during the first 24 hours - ECHO with bubble study ordered - PRN Acetaminophen 650mg to avoid hyperthermia - PRN Labetaol 10 mg IV Q10 mins for SBP > 220 - ASA 81 mg p.o. at bedtime ? Atorvastatin 80 mg p.o. at bedtime - Dr Mcallister consulted, pending in-house Neurology recommendations Chronic Alcohol Dependence -Ethyl alcohol level = 97 -Chronic alcohol use for > 7 years -Last drink on 12/25 Plan : - On CIWA protocol: Ativan 0.5 mg q4H for CIQA 3-6 Ativan 1 mg q4H for CIWA 7-10 Ativan 2 mg q4H for CIWA 11-14 -PRN Librum 25mg q6HR CIWA >15 -Seizure precautions in place -Thiamine 100mg IV qD x 5d -Folic acid 1mg BD -[employer] referral please -Pt counselled against alcohol use CVS No acute PULM No acute GI/Hep HLD Dx: ? Total cholesterol 240, LDL 148, HDL 75 Rx: ? Atorvastatin 80 mg twice daily RENAL Nil acute HEME/ONC Nil acute ENDO Nil acute ID Nil acute MSK/DERM Nil acute ICU Health maintenance: Dispo: Stable for downgrade to the floor Diet: TUbe feeds via OGT DVT ppx: SCDs GI ppx: Protonix 40mg qD IV lines: 2 pIV Central line: No Arterial line: No Riley: No Code status: FULL CODE Plan of care discussed with Attending Dr. Lupillo Tena MD PGY 2 Disclaimer: This note was dictated by speech recognition. Minor errors in tank driver may be present due to voice recognition software. Attending Provider Attestation/Addendum Patient seen and examined with resident. Agree with above. In brief this is a 39-year-old male who presented to the ER for speech difficulties and right upper extremity weakness. On physical exam he is awake alert and oriented, appropriate, there is a right facial droop as well as some decrease in right upper extremity strength when compared to the left. He has some edema of bilateral lower extremities right more than left. On arrival to the ER he was felt to have a stroke and was noted to be within the window. He was given TNK. For this reason he was brought to the ICU for further evaluation and management. He has a repeat head CT which did not show any acute bleed. Labs are noted. He has been stable for 24 hours. He will be downgraded to telemetry. He is also an alcoholic with alcohol abuse. He had a positive blood alcohol level on arrival and has been on CIWA. He will likely start to go into withdrawal in the next day or 2. He has been seen by speech and is currently pending a PT OT eval. Case discussed with the ICU team Labs, imaging and records reviewed Approximately 36 minutes required for evaluation, exam, review, dimension, discussion formulation of plan of care for this acutely ill patient with stroke
--- NOTE | 2024-12-26 16:11 | ESPR_ITS ---
<Statement entered by Esha Mcallister MD - 12/28/24 16:13> Patient seen and examined at bedside. Patient was seen in ICU and was stable for downgrade to medicine floor status post repeat CT head which showed no hemorrhage or large vessel thrombus. Patient's right sided deficits seem to be improving somewhat and will start aspirin and atorvastatin tonight. PT recommends PT with home health which patient currently agrees with plan. Patient will continue to be on CIWA protocol for chronic alcohol use. Patient also appears to have transaminitis, and ultrasound of liver showed prominent pancreatic head and hepatomegaly. Will continue to monitor, and educate patient on importance of alcohol cessation and healthy diet. Pending echocardiogram with bubble status post acute CVA. Anticipate discharge within 48 hours. I discussed with and supervised the summer internship physician who took care of this patient. I personally saw and examined the patient and discussed the assessment and plan with the entire medicine team, including my attending Dr. Tobias, I agree with most of the assessment and plan as documented below Esha Mcallister M.D. PGY-3 Disclaimer: Despite multiple revisions, due to the dictation software being used, the document bellow may not be free of grammatical errors including phonetic/typographic errors. However, this does not deter from our commitment to providing health care in the patient's best interest in mind. Documentation for date of: 12/26/24 Subjective Subjective Interval history: Mr Cisneros is a 39 yom with past medical history of chronic alcoholism, chronic tobacco use, chronic venous insufficiency who presented to the ED after he noted right upper extremity and right facial weakness and numbness that began while he was working, CT head/CTA negative for acute hemorrhage or large vessel thrombus, given tnk and observed in the ICU overnight without complication. Patient downgraded on 12/26, report taken from Dr. Tena. Patient reports his right arm weakness seems to be improving a bit. Facial droop also appears to be improving per nursing report. Will start aspirin and atorvastatin tonight, 24 hours after TNK. Dysphagia 2 diet PT recs home with PT home health. Exam Vital Signs Temp Pulse Resp BP Pulse Ox O2 Del Method 98.1 F 57 L 10 L 156/95 H 98 Room Air 12/26/24 12:00 12/26/24 15:00 12/26/24 15:12/26/24 15:00 12/26/24 15:00 12/26/24 15:00 Narrative Exam General: Patient appears older than stated age, laying in bed, no acute distress, HEENT: Mucosa moist, tongue deviation to the right. Pupils are equal and reactive to light bilaterally Cardiovascular: Normal S1 and S2. Regular rate and rhythm. No murmur appreciated Respiratory: Clear to auscultation bilaterally without wheezes or crackles. Abdomen: Soft, nontender, not distended, Skin: Dry, no rashes or bruising Musculoskeletal: No gross injuries. Able to move all 4 extremities. Right > Left calf edema which is non-tender, no erythematous. Neuro: Alert and oriented x3. Slight slur of speech, right sided facial droop apparant with smiling, tongue deviation to the right. 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 Sensation intact in the bilateral upper extremities. Right sided pronator drift postive. No dismetria, heel to lloyd test negative. Psych: Normal affect and mood Objective Labs 12/27/24 04:38 12/27/24 04:38 Labs: Laboratory Results - last 24 hr 12/26/24 04:57 WBC 3.7 L RBC 4.52 Hgb 14.6 Hct 42.8 MCV 95 MCH 32.3 MCHC 34.1 RDW Std Deviation 47.1 H Plt Count 191 Neut % (Auto) 60 Lymph % (Auto) 16 [place] % (Auto) 19 H Eos % (Auto) 5 Baso % (Auto) 1 Neut # (Auto) 2.2 Lymph # (Auto) 0.6 L [place] # (Auto) 0.7 Eos # (Auto) 0.2 Baso # (Auto) 0.0 Immature Gran # (Auto) 0.01 H Absolute Nucleated RBC 0.00 Immature Gran % 0 Nucleated RBC % 0 PT 10.9 INR 1.0 APTT 28.8 Sodium 136 Potassium 4.1 Chloride 105 Carbon Dioxide 24.6 Anion Gap 6 L BUN 7 L Creatinine 1.0 Estim Creat Clear Calc 104.3 eGFR > 60 BUN/Creatinine Ratio 7 L Glucose [address] Glu mg/dL 114 Hemoglobin A1c 5.6 Calculated Osmolality 268 L Calcium 9.4 Corrected Calcium 9.4 Phosphorus 3.7 Magnesium 2.1 Albumin 4.3 Triglycerides 87 Cholesterol 240 H LDL Cholesterol, Calc 148 H HDL Cholesterol 75 H Cholesterol/HDL Ratio 3.2 L Quality Measures Quality Measures VTE prophylaxis (scd) Assessment & Plan Assessment Current Active Medications: Generic Name Dose Route Start Last Admin Trade Name Freq PRN Reason Stop Dose Admin Acetaminophen 650 mg 12/25/24 16:17 Acetaminophen 325 Mg Tablet PO 01/24/25 16:16 Q6HR PRN Fever >101 and pain Aspirin 81 mg 12/26/24 21:00 Aspirin Ec 81 Mg Tabec PO 01/25/25 20:59 HS ANASTASIYA Atorvastatin Calcium 80 mg 12/26/24 21:00 Atorvastatin Calcium 20 Mg Tablet PO 01/25/25 20:59 HS ANASTASIYA Diazepam 2.5 mg 12/25/24 16:02 Diazepam Inj 5 Mg/Ml Vial 2 Ml IVP 12/30/24 16:01 Q2HR PRN CIWA SCORE 8-13 Diazepam 5 mg 12/25/24 16:02 Diazepam Inj 5 Mg/Ml Vial 2 Ml IVP 12/30/24 16:01 Q2HR PRN CIWA SCORE 14-19 Diazepam 10 mg 12/25/24 16:02 Diazepam Inj 5 Mg/Ml Vial 2 Ml IVP 12/30/24 16:01 Q2HR PRN CIWA SCORE 20-25 Labetalol HCl 10 mg 12/25/24 13:20 12/25/24 14:29 Labetalol Inj 5 Mg/Ml Vial 20 Ml IVP 10 mg Q15M PRN Administration HYPER Lorazepam 0.5 mg 12/25/24 16:02 Lorazepam 0.5 Mg Tablet PO 12/30/24 16:01 Q4HR PRN CIWA Score 2-6 Ondansetron HCl 4 mg 12/25/24 13:20 Ondansetron Inj 2 Mg/Ml Inj 2 Ml IVP 01/24/25 13:19 Q4HR PRN NAUSEA OR VOMITING Plan Mr Cisneros is a 39 yom with past medical history of chronic alcoholism, chronic tobacco use, chronic venous insufficiency who presented to the ED after he noted right upper extremity and right facial weakness and numbness that began while he was working, CT head/CTA negative for acute hemorrhage or large vessel thrombus, given tnk and observed in the ICU overnight without complication. #Acute CVA CT Head negative for acute hemorrhage, mass effect or midline shift CTA head/neck does not show any significant neck arterial stenosis and no cerebral large vessel arterial occlusions/ thrombus. Given TNK, observed in the ICU overnight, remained stable without hemorrhagic conversion. TAGs 87, cholesterol 240, HDL 75, LDL 148. A1c 5.6 -Aspirin and atorvastatin - goal BP <185/105, labetalol and nicardipine PRN ordered - neurochecks q15min in first 2hr, q30min for first 6h and q1h until 24h from start of thrombolysis (13:38) - MRI stroke protocol and echocardiogram ordered - PT recommending HH with PT. -SP recommending Minced moist foods. - holding antiplatelet for first 24h due to TNK administration, will restart this evening. - Repeat head CT in 24h #Chronic alcohol abuse - patient reports drinking 12 pack of beer daily for nearly 2 decades, denies hx of withdrawals - Monitor for withdrawals under CICT protocol - social media analyst to provide substance rehab info #Transaminitis - likely 2/2 above - US of liver shows prominant pancreatic head and hepatomegaly most likely secondary to above. #Chronic venous insufficiency B/l LE edema - Venous doppler of b/l le ordered to r/o DVT, negative for DVT. - f/u echocardiogram #Chronic tobacco use - nicotine patch ordered - counselled on smoking cessation Health Maintenance: DVT prophylaxis: SCDs Diet: Dysphagia 2 Riley: No Lines: PIV CODE STATUS: Full code Disposition: Pending MRI and echo. Patient's plan and care discussed with my attending, Dr Tobias and my senior Dr Mcallister. Srinivasa De La Rosa DO PGY-1 ([facility] Resident) Attending Provider Attestation/Addendum Denise Shepherd DO, attest that I was physically present for the tinsley portions of the service and evaluated the patient with the resident and I reviewed and discussed the case with the resident and agree with the resident's findings and plans of care as documented above Patient is a 39-year-old male admitted yesterday due to acute CVA status post TNK. Patient has been downgraded from the ICU after close observation. Repeat CT does not show any active bleed or acute intracranial findings. Patient continues to have some dysmetria in his right hand and states that he has trouble with gripping objects with his right hand, particularly with his 1st and 2nd digit. Patient shows to have obvious difficulty with finger tapping test, which was not seen yesterday. Speech remains slurred and he continues to have right facial droop. Currently pending echocardiogram. Patient is to start aspirin tonight since it has been over 24 hours since taking TNK. Will continue to monitor patient on telemetry. Patient was able to work with physical therapy. Will need home health on discharge.
[2024-12-26] MEDS: ATORVASTATIN CALCIUM 20 MG TABLET 80 MG PO (21:05)
[2024-12-26] MEDS: ASPIRIN EC 81 MG TABEC PO (21:05)
--- NOTE | 2024-12-26 23:53 | ESPR_ITS ---
Documentation for date of: 12/26/24 Exam - Neurology Vital Signs Temp Pulse Resp BP Pulse Ox O2 Del Method 97.6 F 73 20 140/89 H 99 Room Air 12/26/24 20:00 12/26/24 21:13 12/26/24 21:13 12/26/24 20:00 12/26/24 20:00 12/26/24 20:00 Narrative Exam GENERAL APPEARANCE: Well hydrated, well-nourished in no acute distress. HEENT: Normocephalic, atraumatic, extraocular movements intact. Pupils: Equal reacting to light and accommodation NECK: Supple, no JVD or bruits. CARDIOVASULAR: Heart: S1, S2 heard, regular without S3-S4 or murmur no rubs or gallops. LUNGS/CHEST: Clear to auscultation bilaterally. No rails, rhonchi, or wheezing. Normal inspection. ABDOMEN: Soft, nontender, with normal bowel sounds. No pulsatile masses. No rebound, rigidity, or guarding. Normal inspection and palpation. EXTREMITIES: Normal inspection and palpation. No edema, clubbing or cyanosis. SKIN: Warm and dry without rashes. Normal inspection. MUSCULOSKELETAL: No cervical, thoracic, lumbar or midline bony tenderness. Normal inspection. NEURO: Alert, awake and oriented x3. Cranial nerves: II through XII grossly intact with exception of right facial weakness. Speech and language: Normal with no dysarthria or dysphasia. Motor system: Tone and bulk: Normal: Strength: 5 out of 5 in all 4 extremities; No pronator drift noted. Deep tendon reflexes: 2+ bilaterally symmetrical. Plantar reflex: Downgoing bilaterally. Sensory system: Intact to all modalities of sensation bilaterally. Coordination: Intact to [id number]-[id number]-tuvid and mdbt-mfay-gqko test bilaterally. No ataxia, no dysmetria, or dysdiadochokinesia noted. No intention tremors noted. Gait: Normal. No signs of meningeal irritation noted. PSYCHIATRIC: Normal mood and affect. Objective Labs 12/26/24 04:57 12/26/24 04:57 Labs: Laboratory Results - last 24 hr 12/26/24 04:57 WBC 3.7 L RBC 4.52 Hgb 14.6 Hct 42.8 MCV 95 MCH 32.3 MCHC 34.1 RDW Std Deviation 47.1 H Plt Count 191 Neut % (Auto) 60 Lymph % (Auto) 16 [place] % (Auto) 19 H Eos % (Auto) 5 Baso % (Auto) 1 Neut # (Auto) 2.2 Lymph # (Auto) 0.6 L [place] # (Auto) 0.7 Eos # (Auto) 0.2 Baso # (Auto) 0.0 Immature Gran # (Auto) 0.01 H Absolute Nucleated RBC 0.00 Immature Gran % 0 Nucleated RBC % 0 PT 10.9 INR 1.0 APTT 28.8 Sodium 136 Potassium 4.1 Chloride 105 Carbon Dioxide 24.6 Anion Gap 6 L BUN 7 L Creatinine 1.0 Estim Creat Clear Calc 104.3 eGFR > 60 BUN/Creatinine Ratio 7 L Glucose [address] Glu mg/dL 114 Hemoglobin A1c 5.6 Calculated Osmolality 268 L Calcium 9.4 Corrected Calcium 9.4 Phosphorus 3.7 Magnesium 2.1 Albumin 4.3 Triglycerides 87 Cholesterol 240 H LDL Cholesterol, Calc 148 H HDL Cholesterol 75 H Cholesterol/HDL Ratio 3.2 L Assessment & Plan Assessment and plan (1) Acute CVA (cerebrovascular accident): Status: Acute Assessment and plan: Status post tenecteplase With residual right facial and upper extremity weakness MRI brain: Positive for acute infarction in the left basal ganglia, not significant for demyelination. Follow-up with echocardiogram continue with aspirin 81 mg and Plavix for 21 days followed by aspirin 81 mg alone and statin Advised smoking and alcohol cessation (2) Transaminitis: Status: Acute Assessment and plan: Abdominal ultrasound showed Normal gallbladder Prominent pancreatic head, clinical correlation advised Moderate hepatomegaly suspicious for primary hepatocellular disease, likely fatty liver Advised to cut down on Tylenol intake/alcohol cessation
[2024-12-27] VITALS (9 sets, daily range): BP systolic 123–162; BP diastolic 78–99; PULSE 60–86; RESP 14–98; TEMP 36.2–36.7; O2SAT 95–98; BMI 27.8
[2024-12-27 05:17] LABS: Basophils # (Auto) 0.0 Thou/mm3 (0.0-0.2); Basophils % (Auto) 1 % (0-2.5); Eosinophils # (Auto) 0.1 Thou/mm3 (0.0-0.5); Eosinophils % (Auto) 3 % (0-10); Hematocrit 43.5 % (41.0-53.0); Hemoglobin 14.6 g/dL (13.5-16.0); Immature Granulocytes Auto 0.01 Thou/mm3 (0.00-0.00); Lymphocytes # (Auto) 0.4 Thou/mm3 (1.0-4.8); Lymphocytes % (Auto) 14 % (10-50); Mean Corpuscular HGB Conc 33.6 g/dl (31.0-37.0); Mean Corpuscular Hemoglobin 31.6 pg (25.0-35.0); Mean Corpuscular Volume 94 fL (80-100); Monocytes # (Auto) 0.5 Thou/mm3 (0.0-0.8); Monocytes % (Auto) 18 % (0-12); Neutrophils # (Auto) 1.9 Thou/mm3 (1.8-7.7); Neutrophils % (Auto) 64 % (37-80); Nucleated Red Blood Cell # 0.00 Thou/mm3 (0.00-0.00); Nucleated Red Blood Cell % 0 /100 WBC (0); Platelet Count 179 Thou/mm3 (140-440); RDW Standard Deviation 45.5 fL (35.1-43.9); Red Blood Count 4.62 Miln/mm3 (4.50-5.90); White Blood Count 3.0 Thou/mm3 (3.8-10.6)
[2024-12-27 05:54] LABS: Alanine Aminotransferase 89 U/L (10-49); Albumin, Serum 4.2 gm/dL (3.5-5.0); Albumin/Globulin Ratio 1.6 (1.2-2.2); Alkaline Phosphatase 198 U/L (46-116); Anion Gap 6 (7-16); Aspartate Amino Transferase 140 U/L (0-34); BUN/Creatinine Ratio 10 Ratio (12-20); Bilirubin,Total 1.5 mg/dL (0.3-1.2); Blood Urea Nitrogen 10 mg/dL (9-23); Calcium 9.7 mg/dL (8.3-10.6); Calcium (Corrected) 9.7 mg/dL (8.5-10.1); Carbon Dioxide 23.6 mMol/L (20.0-31.0); Chloride 105 mMol/L (98-107); Creatinine (Component) 1.0 mg/dL (0.6-1.3); Estimated Creatinine Clearance 104.3 mL/min (>60); Globulin 2.7 gm/dL (2.3-3.5); Glucose 93 mg/dL (74-106); Magnesium 2.1 mg/dL (1.6-2.6); Osmolality,Calculated 269 (275-295); Phosphorous 3.2 mg/dL (2.4-5.1); Potassium 4.1 mMol/L (3.4-5.1); Sodium 135 mMol/L (136-145); Total Protein 6.9 gm/dL (5.7-8.2); eGFR > 60 See Note
[2024-12-27] MEDS: CLOPIDOGREL BISULFATE 75 MG TABLET PO (09:47)
--- NOTE | 2024-12-27 10:38 | PD.RESPRO ---
Documentation for date of: 12/27/24 Subjective Subjective Interval history: Mr Cisneros is a 39 yom with past medical history of chronic alcoholism, chronic tobacco use, chronic venous insufficiency who presented to the ED after he noted right upper extremity and right facial weakness and numbness that began while he was working, CT head/CTA negative for acute hemorrhage or large vessel thrombus, given tnk and observed in the ICU overnight without complication. Patient downgraded on 12/26, report taken from Dr. Tena. Patient reports his right arm weakness seems to be improving a bit. Facial droop also appears to be improving per nursing report. Will start aspirin and atorvastatin tonight, 24 hours after TNK. Dysphagia 2 diet PT recs home with PT home health. Patient examined at bedside. NAOE. Feels like dexterity has worsened, however on exam, operator technician strength seems to be marginally improved. MRI of brain demonstrated acute infarction in the left basal ganglia, not significant for demyelination. Neurology recommending addition of plavix for 21 days along with baby aspirin and statin. Plavix started. Patient being monitored for alcohol withdrawal symptoms, currently asymptomatic. Pending Echo bubble study. Exam Vital Signs Temp Pulse Resp BP Pulse Ox O2 Del Method 97.3 F 70 14 150/97 H 98 Room Air 12/27/24 08:00 12/27/24 08:00 12/27/24 08:00 12/27/24 08:00 12/27/24 08:00 12/27/24 08:00 Narrative Exam General: Patient appears older than stated age, laying in bed, no acute distress, HEENT: Mucosa moist, tongue deviation to the right. Pupils are equal and reactive to light bilaterally Cardiovascular: Normal S1 and S2. Regular rate and rhythm. No murmur appreciated Respiratory: Clear to auscultation bilaterally without wheezes or crackles. Abdomen: Soft, nontender, not distended, Skin: Dry, no rashes or bruising Musculoskeletal: No gross injuries. Able to move all 4 extremities. Right > Left calf edema which is non-tender, no erythematous. Neuro: Alert and oriented x3. Slight slur of speech, right sided facial droop apparent with smiling, tongue deviation to the right. Right sided hand operator technician weakness along with weak flexion and extension of the arm. Sensation intact in the bilateral upper extremities. No dysmetria, heel to lloyd test negative. Psych: Normal affect and mood Objective Labs 12/28/24 05:37 12/28/24 05:37 Labs: Laboratory Results - last 24 hr 12/27/24 04:38 WBC 3.0 L RBC 4.62 Hgb 14.6 Hct 43.5 MCV 94 MCH 31.6 MCHC 33.6 RDW Std Deviation 45.5 H Plt Count 179 Neut % (Auto) 64 Lymph % (Auto) 14 [place] % (Auto) 18 H Eos % (Auto) 3 Baso % (Auto) 1 Neut # (Auto) 1.9 Lymph # (Auto) 0.4 L [place] # (Auto) 0.5 Eos # (Auto) 0.1 Baso # (Auto) 0.0 Immature Gran # (Auto) 0.01 H Absolute Nucleated RBC 0.00 Immature Gran % 0 Nucleated RBC % 0 Sodium 135 L Potassium 4.1 Chloride 105 Carbon Dioxide 23.6 Anion Gap 6 L BUN 10 Creatinine 1.0 Estim Creat Clear Calc 104.3 eGFR > 60 BUN/Creatinine Ratio 10 L Glucose 93 Calculated Osmolality 269 L Calcium 9.7 Corrected Calcium 9.7 Phosphorus 3.2 Magnesium 2.1 Total Bilirubin 1.5 H D AST 140 H ALT 89 H Alkaline Phosphatase 198 H D Total Protein 6.9 Albumin 4.2 Globulin 2.7 Albumin/Globulin Ratio 1.6 Quality Measures Quality Measures VTE prophylaxis (scd) Assessment & Plan Assessment Current Active Medications: Generic Name Dose Route Start Last Admin Trade Name Freq PRN Reason Stop Dose Admin Acetaminophen 650 mg 12/25/24 16:17 Acetaminophen 325 Mg Tablet PO 01/24/25 16:16 Q6HR PRN Fever >101 and pain Aspirin 81 mg 12/26/24 21:00 12/26/24 21:05 Aspirin Ec 81 Mg Tabec PO 01/25/25 20:59 81 mg HS ANASTASIYA Administration Atorvastatin Calcium 80 mg 12/26/24 21:00 12/26/24 21:05 Atorvastatin Calcium 20 Mg Tablet PO 01/25/25 20:59 80 mg HS ANASTASIYA Administration Clopidogrel Bisulfate 75 mg 12/27/24 09:00 12/27/24 09:47 Clopidogrel Bisulfate 75 Mg Tablet PO 01/26/25 08:59 75 mg QDAY ANASTASIYA Administration Diazepam 2.5 mg 12/25/24 16:02 Diazepam Inj 5 Mg/Ml Vial 2 Ml IVP 12/30/24 16:01 Q2HR PRN CIWA SCORE 8-13 Diazepam 5 mg 12/25/24 16:02 Diazepam Inj 5 Mg/Ml Vial 2 Ml IVP 12/30/24 16:01 Q2HR PRN CIWA SCORE 14-19 Diazepam 10 mg 12/25/24 16:02 Diazepam Inj 5 Mg/Ml Vial 2 Ml IVP 12/30/24 16:01 Q2HR PRN CIWA SCORE 20-25 Labetalol HCl 10 mg 12/25/24 13:20 12/25/24 14:29 Labetalol Inj 5 Mg/Ml Vial 20 Ml IVP 10 mg Q15M PRN Administration HYPER Lorazepam 0.5 mg 12/25/24 16:02 Lorazepam 0.5 Mg Tablet PO 12/30/24 16:01 Q4HR PRN CIWA Score 2-6 Ondansetron HCl 4 mg 12/25/24 13:20 Ondansetron Inj 2 Mg/Ml Inj 2 Ml IVP 01/24/25 13:19 Q4HR PRN NAUSEA OR VOMITING Plan Mr Cisneros is a 39 yom with past medical history of chronic alcoholism, chronic tobacco use, chronic venous insufficiency who presented to the ED after he noted right upper extremity and right facial weakness and numbness that began while he was working, CT head/CTA negative for acute hemorrhage or large vessel thrombus, given tnk and observed in the ICU overnight without complication. #Acute CVA CT Head negative for acute hemorrhage, mass effect or midline shift CTA head/neck does not show any significant neck arterial stenosis and no cerebral large vessel arterial occlusions/ thrombus. Given TNK, observed in the ICU overnight, remained stable without hemorrhagic conversion. TAGs 87, cholesterol 240, HDL 75, LDL 148. A1c 5.6 MRI: Focus of restricted diffusion, 10 mm in the left basal ganglia but without signal deficit on the ADC map FLAIR images demonstrate scattered foci increased signal in the white matter, demyelinating disease pattern Recommend consultation by neurology and correlation with clinical findings Per neurology, imaging consistent with acute infarct, not demyelinating disease. -Aspirin and atorvastatin and clopridogrel 21 days. - goal BP <185/105, labetalol and nicardipine PRN ordered - neurochecks q15min in first 2hr, q30min for first 6h and q1h until 24h from start of thrombolysis (13:38) - echocardiogram ordered and pending. - PT recommending HH with PT. -SP recommending Minced moist foods. #Chronic alcohol abuse - patient reports drinking 12 pack of beer daily for nearly 2 decades, denies hx of withdrawals. Currently asymptomatic. - Monitor for withdrawals under [facility] protocol - social services coordinator to provide substance rehab info #Transaminitis - likely 2/2 above - US of liver shows prominant pancreatic head and hepatomegaly most likely secondary to above. #Chronic venous insufficiency B/l LE edema - Venous doppler of b/l le ordered to r/o DVT, negative for DVT. - f/u echocardiogram #Chronic tobacco use - nicotine patch ordered - counselled on smoking cessation Health Maintenance: DVT prophylaxis: SCDs Diet: Dysphagia 2 Riley: No Lines: PIV CODE STATUS: Full code Disposition: Pending and echo. Patient's plan and care discussed with my attending, Dr Jatinder De La Rosa DO PGY-1 ([facility] Resident) Attending Provider Attestation/Addendum Denise Shepherd DO, attest that I was physically present for the tinsley portions of the service and evaluated the patient with the resident and I reviewed and discussed the case with the resident and agree with the resident's findings and plans of care as documented above Patient seen and evaluated this AM. Patient states he is doing well. He continues to have some dysmetria and dexterity of his right upper extremity. Speech remains unchanged. Currently pending echo. Patient states he did well with physical therapy and walked down the hallway. PT recommended home health, will order upon discharge. Anticipate DC wtihin next 24h if echo is unremarkable
--- NOTE | 2024-12-27 16:04 | PC.SS ---
SS update: NEWSPAPER DELIVERER informed patient that doctors put in HH order, patient stated he does not have a preference, patient stated that he goes to [facility] but has not been seen in over a year, patients family stated that they will be scheduling an appointment tomorrow morning. NEWSPAPER DELIVERER completed TIA depression screening, patient scored 0, NEWSPAPER DELIVERER placed copy of screening in chart.
[2024-12-27] MEDS: NICOTINE PATCH 14 MG/24 HR PATCH.TD24 TOP (20:07)
[2024-12-27] MEDS: ATORVASTATIN CALCIUM 20 MG TABLET 80 MG PO (20:07)
[2024-12-27] MEDS: ASPIRIN EC 81 MG TABEC PO (20:07)
[2024-12-27 21:14] LABS: Hepatitis A Antibody IgM Non Reactive (Non React); Hepatitis B Core Antibody IgM Non Reactive (Non React); Hepatitis B Surface Antigen Non Reactive (Non React); Hepatitis C Antibody Non Reactive (Non React)
--- NOTE | 2024-12-27 23:08 | PD.VPROG1 ---
Telemedicine visit statement This visit was conducted with the use of phone was obtained on 12/27/24 at 2308. Documentation for date of: 12/27/24 Subjective Subjective Interval history: Patient is intermittently. Continue to have right facial weakness of upper motor neuron type. No more weakness in the upper or lower extremities or speech or language deficit. Tolerating oral diet well. His echocardiogram has been done but report pending. Virtual exam Vital Signs Temp Pulse Resp BP Pulse Ox O2 Del Method 97.9 F 82 17 150/98 H 97 Room Air 12/27/24 20:00 12/27/24 20:00 12/27/24 20:00 12/27/24 20:00 12/27/24 20:00 12/27/24 20:00 Objective Labs 12/27/24 04:38 12/27/24 04:38 Labs: Laboratory Results - last 24 hr 12/27/24 04:38 WBC 3.0 L RBC 4.62 Hgb 14.6 Hct 43.5 MCV 94 MCH 31.6 MCHC 33.6 RDW Std Deviation 45.5 H Plt Count 179 Neut % (Auto) 64 Lymph % (Auto) 14 [place] % (Auto) 18 H Eos % (Auto) 3 Baso % (Auto) 1 Neut # (Auto) 1.9 Lymph # (Auto) 0.4 L [place] # (Auto) 0.5 Eos # (Auto) 0.1 Baso # (Auto) 0.0 Immature Gran # (Auto) 0.01 H Absolute Nucleated RBC 0.00 Immature Gran % 0 Nucleated RBC % 0 Sodium 135 L Potassium 4.1 Chloride 105 Carbon Dioxide 23.6 Anion Gap 6 L BUN 10 Creatinine 1.0 Estim Creat Clear Calc 104.3 eGFR > 60 BUN/Creatinine Ratio 10 L Glucose 93 Calculated Osmolality 269 L Calcium 9.7 Corrected Calcium 9.7 Phosphorus 3.2 Magnesium 2.1 Total Bilirubin 1.5 H D AST 140 H ALT 89 H Alkaline Phosphatase 198 H D Total Protein 6.9 Albumin 4.2 Globulin 2.7 Albumin/Globulin Ratio 1.6 Hepatitis A IgM Ab Non Reactive Hep Bs Antigen Non Reactive Hep B Core IgM Ab Non Reactive Hepatitis C Antibody Non Reactive Assessment & Plan Problem List (1) Acute CVA (cerebrovascular accident): Status: Acute Assessment and plan: Continue to have residual right upper motor neuron facial weakness. Continue with aspirin, Plavix and statin for 21 days followed by aspirin alone Advised smoking and alcohol cessation. Follow-up with echocardiogram report.
[2024-12-28] VITALS (8 sets, daily range): BP systolic 139–155; BP diastolic 89–113; PULSE 63–93; RESP 10–96; TEMP 36.4–36.8; O2SAT 96–98; BMI 28.6
[2024-12-28 06:09] LABS: Basophils # (Auto) 0.0 Thou/mm3 (0.0-0.2); Basophils % (Auto) 1 % (0-2.5); Eosinophils # (Auto) 0.1 Thou/mm3 (0.0-0.5); Eosinophils % (Auto) 3 % (0-10); Hematocrit 45.4 % (41.0-53.0); Hemoglobin 15.4 g/dL (13.5-16.0); Immature Granulocytes Auto 0.00 Thou/mm3 (0.00-0.00); Lymphocytes # (Auto) 0.5 Thou/mm3 (1.0-4.8); Lymphocytes % (Auto) 15 % (10-50); Mean Corpuscular HGB Conc 33.9 g/dl (31.0-37.0); Mean Corpuscular Hemoglobin 31.8 pg (25.0-35.0); Mean Corpuscular Volume 94 fL (80-100); Monocytes # (Auto) 0.6 Thou/mm3 (0.0-0.8); Monocytes % (Auto) 18 % (0-12); Neutrophils # (Auto) 2.0 Thou/mm3 (1.8-7.7); Neutrophils % (Auto) 64 % (37-80); Nucleated Red Blood Cell # 0.00 Thou/mm3 (0.00-0.00); Nucleated Red Blood Cell % 0 /100 WBC (0); Platelet Count 183 Thou/mm3 (140-440); RDW Standard Deviation 45.5 fL (35.1-43.9); Red Blood Count 4.85 Miln/mm3 (4.50-5.90); White Blood Count 3.1 Thou/mm3 (3.8-10.6)
[2024-12-28 06:31] LABS: Alanine Aminotransferase 106 U/L (10-49); Albumin, Serum 4.3 gm/dL (3.5-5.0); Albumin/Globulin Ratio 1.5 (1.2-2.2); Alkaline Phosphatase 211 U/L (46-116); Anion Gap 7 (7-16); Aspartate Amino Transferase 160 U/L (0-34); BUN/Creatinine Ratio 11 Ratio (12-20); Bilirubin,Total 1.4 mg/dL (0.3-1.2); Blood Urea Nitrogen 11 mg/dL (9-23); Calcium 10.0 mg/dL (8.3-10.6); Calcium (Corrected) 10.0 mg/dL (8.5-10.1); Carbon Dioxide 23.3 mMol/L (20.0-31.0); Chloride 105 mMol/L (98-107); Creatinine (Component) 1.0 mg/dL (0.6-1.3); Estimated Creatinine Clearance 105.5 mL/min (>60); Globulin 2.8 gm/dL (2.3-3.5); Glucose 89 mg/dL (74-106); Magnesium 2.2 mg/dL (1.6-2.6); Osmolality,Calculated 268 (275-295); Phosphorous 3.4 mg/dL (2.4-5.1); Potassium 4.1 mMol/L (3.4-5.1); Sodium 135 mMol/L (136-145); Total Protein 7.1 gm/dL (5.7-8.2); eGFR > 60 See Note
[2024-12-28] MEDS: NICOTINE PATCH 14 MG/24 HR PATCH.TD24 TOP (08:08)
[2024-12-28] MEDS: CLOPIDOGREL BISULFATE 75 MG TABLET PO (08:08)
--- NOTE | 2024-12-28 09:01 | PC.CC ---
hh order received, however, pt is not established with a primary care provider. will inform the hospitalist team.
--- NOTE | 2024-12-28 10:08 | PC.SS ---
SS follow up note; Patient will discharge home today.
--- NOTE | 2024-12-28 15:20 | ESDS_ITS ---
<Statement entered by Denise Tobias DO - 12/29/24 07:59> I, Denise Tobias DO, attest that I was physically present for the tinsley portions of the service and evaluated the patient with the resident and I reviewed and discussed the case with the resident and agree with the resident's findings and plans of care as documented above Planned Discharge Date 12/28/24 DS: Providers Provider Date of admission: 12/25/24 14:56 Primary care physician: Physician No Primary/Family Admitting Provider: Denise Tobias DO Attending Provider on Admission: Denise Tobias DO Consults: 12/25/24 13:20 Consult to Neurology / Tele-Neurology Routine Comment: Consulting Provider: [facility] 12/25/24 15:10 Referral Physical Therapy Routine Comment: Physician Instructions: Referral Speech Therapy Routine Comment: 12/26/24 00:00 Consult to Neurology / Tele-Neurology Routine Comment: Consulting Provider: Gary Mcallister 12/26/24 07:04 Referral - SEGMENTAL PAVING SUPERVISOR Billiard Table Assembler Routine Comment: Attending Provider on DC: Denise Tobias DO Discharging Provider: Denise Tobias DO DS: Diagnosis Problem List Completed Was Problem List Reviewed/Reconciled?: Yes Hospital Course Hospital Course Hospital course: Reason for hospitalization: acute CVA Patient is a 39-year-old male with past medical history of chronic alcoholism, chronic tobacco use, chronic venous insufficiency who presented to the ED on 12/25/24 after he noted right upper extremity and right facial weakness and numbness that began while he was working. Patient works as a cook at a local restaurant. Upon evaluation in the ED, stroke alert was called. CT head was done showing no acute intracranial findings. CTA head/neck also did not show any significant neck arterial stenosis and no cerebral large vessel arterial occlusions/ thrombus. Patient received TNK in the ED. Cholesterol 240, LDL 148, HDL 75, TSH 0.72, A1c 5.6%. NIH [address] Post TNK CT head was negative for any signs of hemorrhage. Started on aspirin and [facility] He did not display signs of alcohol withdrawl. PT recommends PT with home health. He has right hand weakness with difficultly in moving right finger. Right facial droop. Echo bubble study was negative. Normal left ventricular size and function. Estimated EF at 55-60%. Normal LV diastolic function. The RV is normal in size and systolic function. Trace TR. Patient is now in stable condition and ready for discharge. Recommendations were given as below. Discharge Recommendations: Start taking Lisinopril 20mg daily for your elevated Blood pressure. Continue taking aspirin 81mg, Plavix 75mg, and atorvastatin 80mg daily for secondary stroke prevention. Stop taking Plavix after 21 days (until January 17), continue other medications life long. Please also try using compression stockings to help with your lower extremity swelling. Please avoid any further smoking and Alcohol use. Follow up with neurology in 2 weeks. Follow up with your PCP in 1-2 weeks. If you do not have a PCP, please make an appointment with the [facility] at [phone] on Wednesdays or Fridays 1-4PM. Hospital Diagnoses: #Acute CVA #Chronic alcohol abuse #Transaminitis #Chronic venous insufficiency #Chronic tobacco use The patient's management plan was discussed with my attending physician Dr. Tobias. Bárbara Corona MD, PGY-2 Time Spent with Patient Time attestation: Total time spent providing and/or coordinating discharge services: Time spent: Greater than 30 minutes Home Health Home Health Referral Orders: 12/27/24 11:53 Home Health Referral Routine Reason For Exam: cva Home-Bound The patient must either because of illness or injury, need the aid of supportive devices such as crutches, canes, wheelchairs, and walkers; the use of special transportation; or the assistance of another person in order to leave their place of residence; OR have a condition such that leaving his or her home is medically contraindicated. In addition, the patient also meets the following criteria: patient is normally unable to leave the home and leaving home requires considerable taxing effort. Addendum to Home Health Certification Practitioner's Certification: I certify that the patient has been under my care in the hospital and the care of attending physician (see below). We had a [id number] encounter on (see date below). My clinical findings indicate that the patient is home bound per the above criteria and the Home Health Services noted in these orders are medically necessary. The primary reason for the [id number] encounter is related to the fact that the patient requires home health services. Date Certifying [id number] Physician Encounter: 12/25/24 Physician's Name who will Assume Oversight for HH Services: Physician No Primary/Family FISHER SEAL - Community Resources: No PT to Evaluate: Yes PT to evaluate and provide a treatmnet plan to increase patient's mobility and strength. Wound Care: No IV Therapy: No RN Safety Evaluation: Yes RN to evaluate and create a plan of care that will produce positive outcomes. Palliative Treatment: No Palliative treatment and evaluate the need for hospice. Home Health Aide - Personal Care: Yes Home Health Aide to assist with any ADL's. Exam Vital Signs Temp Pulse Resp BP Pulse Ox O2 Del Method 97.8 F 84 10 L 146/97 H 96 Room Air 12/28/24 12:00 12/28/24 12:00 12/28/24 12:00 12/28/24 12:00 12/28/24 12:12/28/24 12:00 Narrative Exam General: Patient appears older than stated age, laying in bed, no acute distress, HEENT: Mucosa moist. Pupils are equal and reactive to light bilaterally Cardiovascular: Normal S1 and S2. Regular rate and rhythm. No murmur appreciated Respiratory: Clear to auscultation bilaterally without wheezes or crackles. Abdomen: Soft, nontender, not distended, Skin: Dry, no rashes or bruising Musculoskeletal: No gross injuries. Able to move all 4 extremities. Right > Left calf edema improved, no erythematous. Neuro: Alert and oriented x3. Right sided facial droop apparent with smiling. Right sided hand repair operator weakness along with weak flexion and extension of the arm. Sensation intact in the bilateral upper extremities. No dysmetria, heel to lloyd test negative. Exercises hand with stress ball. Psych: Normal affect and mood Discharge Plan Plan Patient Disposition: Home w/HOME HEALTH Patient condition on transfer: Stable Prescriptions/Referrals Prescriptions/Med Rec: New aspirin 81 mg Tablet,Delayed Release (Dr/Ec) 81 mg PO HS 30 Days Qty: 30 0RF clopidogrel 75 mg Tablet 75 mg PO QDAY 21 Days Qty: 21 0RF atorvastatin 80 mg tablet 80 mg PO QDAY Qty: 30 1RF lisinopril 20 mg tablet 20 mg PO QDAY Qty: 30 0RF nicotine 7 mg/24 hr patch 24 hour 7 mg topical .q24hr Qty: 14 0RF Referrals: Bárbara Corona MD [Resident, Internal Medicine] No Primary/Family,Physician [Primary Care Provider] Gary Mcallister MD [Physician, Neurology] Patient/Caregiver Discharge Instructions Other Discharge Activity Instructions:: Start taking Lisinopril 20mg daily for your elevated Blood pressure. Continue taking aspirin 81mg, Plavix 75mg, and atorvastatin 80mg daily for secondary stroke prevention. Stop taking Plavix after 21 days (until January 17), continue other medications life long. Please also try using compression stockings to help with your lower extremity swelling. Please avoid any further smoking and Alcohol use. Follow up with neurology in 2 weeks. Follow up with your PCP in 1-2 weeks. If you do not have a PCP, please make an appointment with the [facility] at [phone] on Wednesdays or Fridays 1-4PM. Print Language: Irish Stand Alone Forms: Leatha Award Info., Patient Portal Info Letter Discharge Order Discharge Orders: Discharge (Routine); Ordered 12/28/24 Ordered By: Bárbara Corona Quality Discharge Quality Measures VTE prophylaxis
--- NOTE | 2024-12-28 15:54 | PC.SS ---
SS follow up note; SS followed up with Dr. Tobias in regards to patient needing PT. Dr. Tobias informed SS that patient could be followed by PT outpatient. SS contacted patient's life partner and was agreeable to have patient be followed. Giuliana also informed SS that patient has an appointment tomorrow at [facility]. SS faxed PT referral X2 times to outpatient PT.
--- NOTE | 2024-12-28 22:53 | PD.VPROG1 ---
Telemedicine visit statement This visit was conducted with the use of phone was obtained on 12/28/24. Documentation for date of: 12/28/24 Subjective Subjective Interval history: Patient is in telemetry. Continues to have right facial weakness. Tolerating oral diet well. Virtual exam Vital Signs Temp Pulse Resp BP Pulse Ox O2 Del Method 97.8 F 84 10 L 146/97 H 96 Room Air 12/28/24 12:00 12/28/24 12:00 12/28/24 12:00 12/28/24 12:00 12/28/24 12:00 12/28/24 12:00 Objective Labs 12/28/24 05:37 12/28/24 05:37 Labs: Laboratory Results - last 24 hr 12/28/24 05:37 WBC 3.1 L RBC 4.85 Hgb 15.4 Hct 45.4 MCV 94 MCH 31.8 MCHC 33.9 RDW Std Deviation 45.5 H Plt Count 183 Neut % (Auto) 64 Lymph % (Auto) 15 [place] % (Auto) 18 H Eos % (Auto) 3 Baso % (Auto) 1 Neut # (Auto) 2.0 Lymph # (Auto) 0.5 L [place] # (Auto) 0.6 Eos # (Auto) 0.1 Baso # (Auto) 0.0 Immature Gran # (Auto) 0.00 Absolute Nucleated RBC 0.00 Immature Gran % 0 Nucleated RBC % 0 Sodium 135 L Potassium 4.1 Chloride 105 Carbon Dioxide 23.3 Anion Gap 7 BUN 11 Creatinine 1.0 Estim Creat Clear Calc 105.5 eGFR > 60 BUN/Creatinine Ratio 11 L Glucose 89 Calculated Osmolality 268 L Calcium 10.0 Corrected Calcium 10.0 Phosphorus 3.4 Magnesium 2.2 Total Bilirubin 1.4 H AST 160 H ALT 106 H Alkaline Phosphatase 211 H Total Protein 7.1 Albumin 4.3 Globulin 2.8 Albumin/Globulin Ratio 1.5 Assessment & Plan Problem List (1) Acute CVA (cerebrovascular accident): Status: Acute Assessment and plan: Continue to have residual right upper motor neuron facial weakness. Continue with aspirin, Plavix and statin for 21 days followed by aspirin alone Advised smoking and alcohol cessation. Echo: Negative bubble study, normal ejection fraction and trace tricuspid regurgitation Patient is stable for discharge from neurology standpoint I will see him in follow-up in 2 weeks upon referral.
== END 2024-12-28 15:00 | disposition home health service (06) | DRG 45 ==
LOC: SERX 17:07 → SERHOLD 21:58 → S2SX 12-26 13:05 → S2NX 12-28 05:38 → SERHOLD 01-01 08:44 → S2NX 01-01 08:44 → S2SX 01-01 08:44
PROVIDERS: Nurse Practitioner Family; Admitting Provider Internal Medicine; Emergency Provider Emergency Medicine; Visit Provider Internal Medicine
DX: I63.89 Other cerebral infarction (principal); R29.810 Facial weakness; I87.2 Venous insufficiency (chronic) (peripheral); G37.9 Demyelinating disease of central nervous system, unspecified; R16.0 Hepatomegaly, not elsewhere classified; F17.200 Nicotine dependence, unspecified, uncomplicated; E78.5 Hyperlipidemia, unspecified; F10.20 Alcohol dependence, uncomplicated; G81.91 Hemiplegia, unspecified affecting right dominant side; Z79.82 Long term (current) use of aspirin; R47.1 Dysarthria and anarthria; Y90.4 Blood alcohol level of 80-99 mg/100 ml; Z79.899 Other long term (current) drug therapy; R29.703 NIHSS score 3
CPT/HCPCS: 36415; 70450; 70496; 70498; 70544; 71045; 76705; 80053; 80061; 80069; 80074; 80307; 80320; 81001; 83036; 83735; 84100; 84443; 84484; 84703; 85025; 85610; 85730; 87081; 92526; 92610; 93005; 93225; 93306; 93970; 96374; 97161; 99285; A4649; J3101; J3490; Q9967; A9270; G0480; J1920